=== PATIENT | male | born 1960 | race Caucasian/White ===

== ENCOUNTER 2020-07-24 14:17 | Outpatient (CLI) | payer OTHER, SELFPAY ==
--- NOTE | 2020-07-24 14:21 | ECHO_ITS ---
Patient Info Name: Tremayne Contreras Age: 60 years : 1960 Gender: Male Ht: 68 in Wt: 175 lbs BSA: 1.97 m2 HR: 88 bpm BP: 201 / 82 mmHg Heart Rhythm: Sinus Rhythm Technical Quality: Good Exam Date: 07/24/2020 3:11 PM Exam Location: [facility] Patient Status: Outpatient Admit Date: 07/24/2020 Staff Ordering Physician: Rito Jones PA-C Digital Content Coordinator: Donna Pressley RDCS Attending Provider: Rito Jones PA-C Referring Physician: Karen YAO; Exam Type: CA echo doppler color flow Study Info Indications - nonrheumatic aortic valve Complete two-dimensional, color flow and Doppler transthoracic echocardiogram is performed. Strain analysis performed. Summary 1. Complete two-dimensional, color flow and Doppler transthoracic echocardiogram is performed. 2. Left ventricular chamber dimension is mildly enlarged. 3. Left ventricular systolic function is normal, estimated at 60-65%. 4. There is mildly increased left ventricular wall thickness. 5. The left ventricular diastolic function is normal. 6. Global longitudinal strain is normal at -18 %. 7. Left atrial chamber dimension is mildly enlarged. 8. There is moderate to severe aortic valve regurgitation. 9. There is mild aortic valve sclerosis. 10. Possible bicuspid valve. 11. There is mild mitral valve regurgitation. 12. There is mild tricuspid valve regurgitation. 13. There is mild pulmonic regurgitation. 14. The aortic root size at the sinus of Valsalva is mildly dilated. 15. Would recommend close follow-up of her aortic valve and eventual THERON if one has not already been performed for anatomical evaluation. 16. Strain analysis performed. Left Ventricle Left ventricular chamber dimension is mildly enlarged. Left ventricular systolic function is normal, estimated at 60-65%. There is mildly increased left ventricular wall thickness. The left ventricular diastolic function is normal. Global longitudinal strain is normal at -18 %. Right Ventricle Right ventricular chamber dimension is normal. Right ventricular systolic function is normal. Left Atria Left atrial chamber dimension is mildly enlarged. Right Atria Right atrial chamber dimension is normal. Prominent eustachian valve-benign finding. Atrial Septum Intact interatrial septum visualized by color flow imaging. Aortic Valve There is mild aortic valve sclerosis. There is no aortic valve stenosis. There is moderate to severe aortic valve regurgitation. Possible bicuspid valve. Pulmonic Valve The pulmonic valve is normal. There is no pulmonic valve stenosis. There is mild pulmonic regurgitation. Mitral Valve The mitral valve has normal leaflets. There is no mitral valve stenosis. There is mild mitral valve regurgitation. Tricuspid Valve The tricuspid valve leaflets are normal. There is no significant tricuspid valve stenosis. There is mild tricuspid valve regurgitation. No pulmonary hypertension, estimated pulmonary arterial systolic pressure is 31 mmHg. Other Findings Would recommend close follow-up of her aortic valve and eventual THERON if one has not already been performed for anatomical evaluation. Pericardium/Pleural The pericardium appears normal. There is no pericardial effusion. Inferior Vena Cava Normal inferior vena cava with >50% collapse upon inspiration consistent with normal right atrial pressure, 10 mmHg. Aorta The aortic root size at the sinus of Valsalva is
== END 2020-07-24 14:18 | disposition home or self-care (01) ==
PROVIDERS: PCP Physician Assistant; Visit Provider Physician Assistant
DX: I35.0 Nonrheumatic aortic (valve) stenosis (principal); I34.0 Nonrheumatic mitral (valve) insufficiency; I07.1 Rheumatic tricuspid insufficiency; I37.1 Nonrheumatic pulmonary valve insufficiency
CPT/HCPCS: 93306

== ENCOUNTER 2020-07-31 12:06 | Outpatient (CLI) | payer OTHER, SELFPAY ==
[2020-07-31 12:42] LABS: Hematocrit 43.6 % (42.0-52.0); Hemoglobin 14.9 g/dL (14.0-18.0); Mean Corpuscular HGB Conc 34.2 g/dl (32-36); Mean Corpuscular Volume 93.6 fl (80-100); Mean Platelet Volume 8.6 fl (7.4-10.4); Platelet Count Result 232 k/mm3 (150-375); Red Blood Count 4.66 M/mm3 (4.6-6.20); Red Cell Distribution Width 12.5 % (11.5-14.5); White Blood Count 6.2 K/mm3 (4.5-10.0)
[2020-07-31 12:45] LABS: Add Urine Microscopic? NO; Appearance Urine Clear (Clear); Bilirubin Urine Negative (Negative); Blood Urine Negative (Negative); Color Urine Colorless (Yellow); Glucose Urine UA Negative (Negative); Ketones Urine Negative (Negative); Leukocyte Esterase Ur Negative LEU/UL (NEGATIVE); Nitrate Urine Negative (Negative); Protein Urine Negative (Negative); Specific Grav Ur 1.005 (1.001-1.035); Urobilinogen Urine Negative mg/dL (<2.0)
[2020-07-31 12:55] LABS: Alanine Aminotransferase 19 U/L (4-50); Albumin Level 4.1 g/dL (3.5-5.1); Alkaline Phosphatase 79 U/L (38-126); Anion Gap 4 mmol/L (8-16); Aspartate Amino Transferase 27 U/L (17-59); Bilirubin,Total 0.7 mg/dL (0.2-1.3); Blood Urea Nitrogen 17 mg/dL (9-20); Calcium 9.3 mg/dL (8.4-10.2); Carbon Dioxide 30 mmol/L (22-30); Chloride 102 mmol/L (98-107); Cholesterol 220 mg/dL (0-200); Estimated Glomerular Filt Rate > 60; Glucose 97 mg/dL (75-110); HDL Direct 52 mg/dL; Potassium 4.5 mmol/L (3.4-5.0); Sodium 136 mmol/L (137-145); Triglycerides 128 mg/dL (<150)
[2020-07-31 13:05] LABS: LDL Cholesterol Direct 146 mg/dL
[2020-07-31 13:25] LABS: Prostate Specific Antigen 1.6 ng/mL (< OR = 4.0)
== END 2020-07-31 12:07 | disposition home or self-care (01) ==
PROVIDERS: PCP Physician Assistant; Visit Provider Physician Assistant
DX: Z00.00 Encounter for general adult medical examination without abnormal findings (principal); R35.0 Frequency of micturition; Z12.5 Encounter for screening for malignant neoplasm of prostate
CPT/HCPCS: 36415; 80053; 80061; 81003; 84153; 84443; 85027; 87086; G0103

== ENCOUNTER 2020-08-07 12:42 | Outpatient (CLI) | payer OTHER, SELFPAY ==
--- NOTE | ~2020-08-07 | CT_ITS ---
EXAMINATION: CT chest w con DATE: 08/07/2020 13:06 INDICATION: Aortic valve insufficiency TECHNIQUE: Transaxial computed tomographic images of the chest were obtained after the administration of 75 cc of Omnipaque 350 intravenous contrast. The dose-length product (DLP) was 259.81 mGy-cm. Ite rative reconstruction was used. COMPARISON: 02/15/2011 FINDINGS: The lungs are free of acute opacities. There is no pleural effusion or pneumothorax. Calcif ied pulmonary nodules and calcified right hilar lymph nodes are consistent with old granulomatous dis ease. The ascending aorta measures 4.5 cm at the level of the sinuses of Valsalva. The heart size is normal. There are no pathologically enlarged thoracic lymph nodes. Punctate calcifications in an othe rwise normal spleen likely represent healed granulomatous disease. There is mild thoracic spondylosis . IMPRESSION: 1. Dilated aortic root measuring 4.5 cm at the level of the sinuses of Valsalva. Reviewed, dictated and finalized at location A. NING INSTRUCTOR IMPRESSION: 1. Dilated aortic root measuring 4.5 cm at the level of the sinuses of Valsalva .
== END 2020-08-07 12:43 | disposition home or self-care (01) ==
PROVIDERS: PCP Physician Assistant; Visit Provider Specialist
DX: I35.1 Nonrheumatic aortic (valve) insufficiency (principal); M47.814 Spondylosis without myelopathy or radiculopathy, thoracic region
CPT/HCPCS: 71260; Q9967

== ENCOUNTER 2020-08-12 01:28 | Outpatient (CLI) | payer OTHER, SELFPAY ==
[2020-08-12 20:15] LABS: SARS-CoV-2 RNA PCR Negative
== END 2020-08-12 01:29 | disposition home or self-care (01) ==
LOC: ANHCOVIDDT 01:28
PROVIDERS: PCP Physician Assistant; Visit Provider Specialist
DX: Z01.812 Encounter for preprocedural laboratory examination (principal); Z11.59 Encounter for screening for other viral diseases
CPT/HCPCS: 87635; C9803; U0003

== ENCOUNTER 2020-08-16 00:46 | Day surgery (SDC) | payer OTHER, SELFPAY ==
[2020-08-15 10:00] VITALS: BP 146/58; PULSE 62; RESP 16; TEMP 36.6; O2SAT 96
[2020-08-15 11:06] VITALS: BMI 26.6
[2020-08-16] VITALS (10 sets, daily range): BP systolic 146–187; BP diastolic 58–71; PULSE 60–70; RESP 16–20; TEMP 36.6–36.7; O2SAT 95–98
[2020-08-16 07:43] LABS: Hematocrit 45.5 % (42.0-52.0); Hemoglobin 15.7 g/dL (14.0-18.0); Mean Corpuscular HGB Conc 34.5 g/dl (32-36); Mean Corpuscular Hemoglobin 32.2 pg (26-34); Mean Corpuscular Volume 93.4 fl (80-100); Mean Platelet Volume 9.1 fl (7.4-10.4); Platelet Count Result 221 k/mm3 (150-375); Red Blood Count 4.87 M/mm3 (4.6-6.20); Red Cell Distribution Width 12.6 % (11.5-14.5); White Blood Count 5.2 K/mm3 (4.5-10.0)
[2020-08-16 07:54] LABS: Alanine Aminotransferase 22 U/L (4-50); Albumin Level 4.4 g/dL (3.5-5.1); Alkaline Phosphatase 90 U/L (38-126); Anion Gap 8 mmol/L (8-16); Aspartate Amino Transferase 27 U/L (17-59); Bilirubin,Total 0.7 mg/dL (0.2-1.3); Blood Urea Nitrogen 12 mg/dL (9-20); Calcium 9.4 mg/dL (8.4-10.2); Carbon Dioxide 27 mmol/L (22-30); Chloride 106 mmol/L (98-107); Estimated CRCL calculation 61 ml/min; Estimated Glomerular Filt Rate > 60; Glucose 119 mg/dL (75-110); Sodium 141 mmol/L (137-145)
--- NOTE | 2020-08-16 08:37 | WPDMODSED ---
Moderate Sedation Note-Pt Data Patient Data Diagnosis: chronic aortic valve regurgitation and aortic root enlargement Present Complaint: 60-year-old man reporting symptoms of mild DUONG. He is known to have chronic aortic valve regurgitation and now has evidence of modest and left ventricular enlargement and ascending aorta diameter of 4.5 cm Procedure to be performed/Plan: right and left heart catheterization Allergies Allergy/AdvReac Type Severity Reaction Status Date / Time No Known Allergies Allergy Unknown Verified 07/10/20 09:51 Home Medications Medication Instructions Recorded Confirmed Type lisinopril 20 mg tablet 20 mg PO DAILY #90 tablet 07/10/20 08/15/20 Rx tamsulosin 0.4 mg capsule 0.4 mg PO DAILY #90 cap 07/17/20 08/15/20 Rx Current Medications: Active Medications Sodium Chloride (Normal Saline Iv) 500 mls @ 100 mls/hr IV CONT .Q5H ANGE Sedation/Anesthesia: No previous sedation/anesthesia problems (including family history). [facility] Past Medical History Medical History (Updated 07/14/20 @ 11:49 by Rito Jones PA-C) Hypertension Family History Family History Father Heart disease Mother No problems noted. Social History Social History Smoking status: Never smoker Alcohol intake: current Substance use: never Mod Sed Physical Exam Physical Exam Pre Procedural Exam: Normal: Appearance, Neck, Throat, Airway, Lungs, Heart Size, Heart Rate, Heart Rhythm and Neuro Exam and Variation: Extremities ( Pistol shot pulses) Hours since solid foods: 12 Hours since liquid intake: 12 Internal Medicine - PN: Obj Da Vital Signs Vital Signs: Vital Signs - 24 hr 08/16/20 08:10 Temperature 36.7 C Pulse Rate 70 Respiratory Rate 16 Blood Pressure 187/71 H Pulse Oximetry 98 Intake/Output Intake/Output: Intake & Output 08/13/20 08/14/20 08/15/20 08/16/20 23:59 23:59 23:59 23:59 Output Total 0 Balance 0 Meds/Results Medications: Active Medications Generic Name Dose Route Start Last Admin Trade Name Freq PRN Reason Stop Dose Admin Sodium Chloride 500 mls @ 100 mls/hr 08/16/20 07:35 Normal Saline Iv IV CONT .Q5H ANGE Labs CBC & Chem 7: 08/16/20 07:37 08/16/20 07:37 Labs: Laboratory Results - last 24 hr 08/16/20 08/16/20 07:37 07:37 WBC 5.2 RBC 4.87 Hgb 15.7 Hct 45.5 MCV 93.4 MCH 32.2 MCHC 34.5 RDW 12.6 Plt Count 221 MPV 9.1 Sodium 141 Potassium 4.0 Chloride 106 Carbon Dioxide 27 Anion Gap 8 BUN 12 D Creatinine 1.10 Estim Creat Clear Calc 61 Estimated GFR > 60 Glucose 119 H Calcium 9.4 Total Bilirubin 0.7 AST 27 ALT 22 Alkaline Phosphatase 90 Total Protein 8.0 Albumin 4.4 ASA Classification/Sedation ASA Classification/Sedation ASA Class: III Emergent: No Risks: Risks, benefits and alternatives explained and patient/family accepted plan for sedation. Patient re-evaluated immediately prior to sedation.
--- NOTE | 2020-08-16 09:34 | WPDCARDPROC ---
Cardiac Cath Procedure Note Date of procedure:: 08/16/20 Performing physician:: Ubaldo Velázquez MD Indication:: aortic root enlargement and severe aortic regurgitation Brief clinical history:: this is a 60-year-old man referred because of symptoms of mild dyspnea he is been found to have chronic aortic valve regurgitation and has echocardiographic evidence of modest enlarging of the left ventricle and chest CT demonstrating ascending aorta diameter is 4.5 cm. Procedure Procedure performed:: Right and left heart catheterization Sedation/Medication given:: fentanyl 50 mg Versed 4 mg case start time 8:46 a.m. case end time 9:30 a.m. sedation provided by Heavenly Cramer RN, trained observer Access site:: right femoral artery, right femoral vein Estimated blood loss:: 10-15 cc Procedure note:: patient was brought to the cardiac catheterization lab where the right femoral triangle was prepared and draped in usual fashion. Anesthesia was provided with 1% lidocaine infiltrated locally. Using modified Seldinger technique a 5 Kazakh sheath was placed into the right femoral artery and a 7 Kazakh sheath into the femoral vein. I used a balloon tipped [place] catheter to measure right heart pressures. The right atrium and right ventricle were measured. I was unable to locate the catheter out into the pulmonary artery and withdrew the [place] catheter and replaced it with an S tip catheter. The S tipped catheter was able to successfully advance into the pulmonary artery in wedge position. Following that he cardiac outputs were calculated and av O2 difference was sample. The [place] catheter was then removed. I used a 5 Kazakh angled pigtail catheter to in advanced to the central aorta and left ventricle the left ventricular and aortic hemodynamics were documented and then an LV g was done in the 30 degree SHAW projection. An aortic root injection was done in the 45 degree HELEN projection. The pigtail catheter was then removed. I used a 5 Kazakh FL4 catheter to engage inject the left coronary artery in multiple projections. I used a 5 Kazakh JR4 catheter to engage inject the right coronary artery. Following this procedure was terminated. An angiogram was done of the femoral artery through the sheath after which a 6 Kazakh Angio-Seal device was deployed at the puncture site with a good hemostatic result. The venous sheath was removed with direct manual pressure in the clinical laboratory technician. Procedure was well tolerated and uncomplicated. He left the clinical laboratory technician with no evidence of a groin hematoma. Findings:: Hemodynamics: Right atrium 3 mmHg right ventricle 28 over 3 and diastolic 7 pulmonary artery pressure 23 over for pulmonary wedge pressure 6. Central aorta 170/58 left ventricle 170/0 end-diastolic 12 there is no significant gradient on pullback across the aortic valve. Pulse pressure as measured above is 112 mmHg. Thermodilution cardiac output is 6.43 liters/minute giving an index of 3.33 Josefina cardiac output is 6.83 liters/minute giving an index of 3.53. left ventricle: The LV is slightly enlarged there is good contractility in all segments the ejection fraction is 55-60% aortic root: Aortic root is moderately dilated there is 3 to 4+ aortic regurgitation by angiographic criteria. The left main coronary artery is short and nicely patent the LAD is a moderate caliber artery the proximal half of the LAD is ectatic lead dilated. There is minimal atherosclerotic plaquing in the segment but no functionally significant lesions. The circumflex is a medium caliber vessel giving rise to marginal branches the circumflex system is angiographically smooth and unremarkable in appearance the right coronary artery is dominant to the inferior wall it is also large and ectatic lead dilated with mild diffuse luminal irregularities but no flow-limiting lesions are identified. Conclusion:: 1. Right coronary dominant circulation with ectatic hardeep
== END 2020-08-16 13:15 | disposition home or self-care (01) ==
PROVIDERS: PCP Physician Assistant; Visit Provider Specialist
PROC: 4A023N8 Measurement of Cardiac Sampling and Pressure, Bilateral, Percutaneous Approach (ICD-10-PCS; CPT 93453; principal; 2020-08-16 08:30)
DX: I35.1 Nonrheumatic aortic (valve) insufficiency (principal); I77.810 Thoracic aortic ectasia; R06.00 Dyspnea, unspecified; R01.1 Cardiac murmur, unspecified; N40.0 Benign prostatic hyperplasia without lower urinary tract symptoms; I10 Essential (primary) hypertension
CPT/HCPCS: 36415; 80053; 85027; 93460; C1760; C1887; C1894; G0269; J1644; J2250; J3010; J7040

== ENCOUNTER 2021-01-30 08:46 | Outpatient (CLI) | payer OTHER, SELFPAY ==
--- NOTE | 2021-01-30 | EST_ITS ---
Patient Info Name: Tremayne Contreras Age: 61 years : 1960 Gender: Male Ht: 68 in Wt: 180 lbs BSA: 2.00 m2 HR: 67 bpm BP: 139 / 52 mmHg Heart Rhythm: Sinus Rhythm Exam Date: 01/30/2021 9:02 AM Exam Location: [facility] Patient Status: Outpatient Admit Date: 01/30/2021 Staff Ordering Physician: Ubaldo Velázquez MD Body Care Manager: Jacquelyn Ca RDCS Attending Provider: Ubaldo Velázquez MD Exercise Technologist: Masha Trujillo RDCS Exercise Physician: Carlos Eduardo Mcclellan MD Exam Type: CA stress echo Study Info Indications I35.1 - Nonrheumatic aortic (valve) insufficiency Treadmill exercise stress echocardiogram is performed. Summary 1. This study was performed in a patient with significant aortic regurgitation to check functional capacity and LV function with stress. Baseline EKG showed sinus rhythm, no significant ST-T abnormalities. Patient exercised on the treadmill using standard Kalin protocol for 9 minutes and 24 seconds achieving a cardiac workload of 10.9 Mets. Patient stopped exercise due to shortness of breath. No chest pain. Nondiagnostic ST changes were seen on the EKG which did not meet criteria for ischemia. Baseline echocardiogram showed moderate LV enlargement with preserved LV systolic function, EF 55-60%. Stress echocardiographic images showed hyperdynamic LV systolic function with augmentation of all visualized myocardial segments without segmental wall motion abnormality. CONCLUSIONS: 1. Stress EKG and stress echocardiogram negative for ischemia. 2. Good functional capacity. 3. Wide pulse pressure due to aortic regurgitation. 4. Clinical correlation is recommended. Stress Echo Findings Left Ventricle Hyperdynamic LV systolic function, with decrease in the LV cavity size, no segmental wall motion abnormality was seen. Left Ventricle Moderate LV enlargement, normal global LV systolic function, ejection fraction 55-60%. Right Ventricle Normal size and systolic function. Protocol: Kalin Stress ECG Details Stage: REST Duration (min): 1 min : 54 sec Speed (mph): 0.0 Grade (%): 0 HR (bpm): 66 SBP (mmHg): 139 DBP (mmHg): 52 METS: --- Stage: REST Duration (min): --- Speed (mph): 0.0 Grade (%): 0 HR (bpm): 73 SBP (mmHg): 139 DBP (mmHg): 52 METS: --- Stage: STAGE 1 Duration (min): 1 min : 0 sec Speed (mph): 1.7 Grade (%): 10 HR (bpm): 79 SBP (mmHg): 139 DBP (mmHg): 52 METS: --- Stage: STAGE 1 Duration (min): 2 min : 0 sec Speed (mph): 1.7 Grade (%): 10 HR (bpm): 80 SBP (mmHg): 139 DBP (mmHg): 52 METS: --- Stage: STAGE 1 Duration (min): 3 min : 0 sec Speed (mph): 1.7 Grade (%): 10 HR (bpm): 93 SBP (mmHg): 168 DBP (mmHg): 71 METS: --- Stage: STAGE 2 Duration (min): 1 min : 0 sec Speed (mph): 2.5 Grade (%): 12 HR (bpm): 96 SBP (mmHg): 168 DBP (mmHg): 71 METS: --- Stage: STAGE 2 Duration (min): 2 min : 0 sec Speed (mph): 2.5 Grade (%): 12 HR (bpm): 102 SBP (mmHg): 179 DBP (mmHg): 72 METS: --- Stage: STAGE 2 Duration (
== END 2021-01-30 08:47 | disposition home or self-care (01) ==
PROVIDERS: PCP Physician Assistant; Visit Provider Specialist
DX: I35.1 Nonrheumatic aortic (valve) insufficiency (principal)
CPT/HCPCS: 93351

== ENCOUNTER 2021-05-10 11:26 | Outpatient (CLI) | payer OTHER, SELFPAY ==
[2021-05-10 12:18] LABS: Add Urine Microscopic? YES; Appearance Urine Clear (Clear); Bilirubin Urine Negative (Negative); Blood Urine Negative (Negative); Color Urine Amber (Yellow); Glucose Urine UA Negative (Negative); Ketones Urine Negative (Negative); Leukocyte Esterase Ur Negative LEU/UL (NEGATIVE); Mucus Urine Moderate /lpf; Nitrate Urine Negative (Negative); Protein Urine 1+ mg/dL (Negative); Specific Grav Ur 1.024 (1.001-1.035)
== END 2021-05-10 11:27 | disposition home or self-care (01) ==
LOC: ANHLAB 11:27
PROVIDERS: PCP Physician Assistant; Visit Provider Physician Assistant
DX: R30.0 Dysuria (principal)
CPT/HCPCS: 81001; 87086

== ENCOUNTER 2022-02-13 15:02 | Outpatient (CLI) | payer OTHER, SELFPAY ==
[2022-02-13 15:41] LABS: Anion Gap 6 mmol/L (8-16); Blood Urea Nitrogen 18 mg/dL (9-20); Calcium 8.7 mg/dL (8.4-10.2); Carbon Dioxide 26 mmol/L (22-30); Chloride 106 mmol/L (98-107); Estimated Glomerular Filt Rate > 60; Glucose 96 mg/dL (65-110); Potassium 4.2 mmol/L (3.4-5.0); Sodium 138 mmol/L (137-145)
== END 2022-02-13 15:03 | disposition home or self-care (01) ==
LOC: ANHLAB 15:04
PROVIDERS: PCP Physician Assistant; Visit Provider Specialist
DX: I35.1 Nonrheumatic aortic (valve) insufficiency (principal)
CPT/HCPCS: 36415; 80048

== ENCOUNTER 2022-03-18 12:10 | Outpatient (CLI) | payer OTHER, SELFPAY ==
--- NOTE | 2022-03-18 | ECHO_ITS ---
Patient Info Name: Tremayne Contreras Age: 62 years : 1960 Gender: Male Ht: 68 in Wt: 175 lbs BSA: 1.97 m2 HR: 59 bpm BP: 167 / 74 mmHg Heart Rhythm: Sinus Rhythm Technical Quality: Good Exam Date: 03/18/2022 12:43 PM Exam Location: [facility] Patient Status: Outpatient Admit Date: 03/18/2022 Staff Ordering Physician: Ubaldo Velázquez MD Yard Associate: Jacquelyn Ca RDCS Attending Provider: Ubaldo Velázquez MD Referring Physician: Melania CROWLEY; Exam Type: CA echo doppler color flow Study Info Indications I35.1 - Nonrheumatic aortic (valve) insufficiency Complete two-dimensional, color flow and Doppler transthoracic echocardiogram is performed. Summary 1. Complete two-dimensional, color flow and Doppler transthoracic echocardiogram is performed. 2. Left ventricular chamber dimension is mildly enlarged. 3. Left ventricular systolic function is normal, estimated at 60-65%. 4. The left ventricular diastolic function is grade I diastolic dysfunction. 5. There is moderate aortic valve regurgitation. 6. Left ventricular end systolic dimension is normal. Left Ventricle Left ventricular chamber dimension is mildly enlarged. Left ventricular systolic function is normal, estimated at 60-65%. The left ventricular diastolic function is grade I diastolic dysfunction. Right Ventricle Right ventricular chamber dimension is normal. Left Atria Left atrial chamber dimension is normal. Right Atria Right atrial chamber dimension is normal. Aortic Valve The aortic valve is trileaflet. There is moderate aortic valve regurgitation. Pulmonic Valve The pulmonic valve is normal. Mitral Valve The mitral valve has normal leaflets. Tricuspid Valve The tricuspid valve leaflets are normal. Pericardium/Pleural The pericardium appears normal. Aorta The aortic root size at the sinus of Valsalva is normal. Left Ventricular Outflow Tract Name Value Normal LVOT 2D LVOT Diameter 2.5 cm LVOT Doppler LVOT Peak Gradient 4 mmHg LVOT Mean Gradient 2 mmHg LVOT VTI 26 cm LVOT VTI/AV VTI Ratio 0.6 LVOT Stroke Volume 122 ml LVOT CO 7.4 l/min LVOT CI 3.8 l/min/m2 Pulmonic Valve Name Value Normal RVOT Doppler RVOT Peak Gradient 2 mmHg PV Doppler PV Peak Gradient 3 mmHg Mitral Valve Name Value Normal MV Doppler
== END 2022-03-18 12:11 | disposition home or self-care (01) ==
PROVIDERS: PCP Physician Assistant; Visit Provider Specialist
DX: I35.1 Nonrheumatic aortic (valve) insufficiency (principal)
CPT/HCPCS: 93306

== ENCOUNTER 2022-05-23 09:52 | Observation (INO) | payer OTHER, SELFPAY ==
[2022-05-23] VITALS (32 sets, daily range): BP systolic 128–158; BP diastolic 57–89; PULSE 71–157; RESP 14–31; TEMP 36.4–37; O2SAT 95–99; BMI 25.2
--- NOTE | ~2022-05-23 | XR_ITS ---
EXAMINATION: XR chest 2V DATE: 05/23/2022 11:40 INDICATION: Weakness. TECHNIQUE: Frontal and lateral views of the chest were obtained. COMPARISON: Chest 2 views 04/13/2011, chest CT 08/07/2020 FINDINGS: The chest demonstrates clear lungs without pneumonia, pleural effusion, or pneumothorax. Th e heart size is normal. There is a prominent left paracardial fat pad. IMPRESSION: 1. No acute cardiopulmonary disease. Reviewed, dictated and finalized at location A.
--- NOTE | 2022-05-23 09:58 | ECG_ITS ---
Measurements Intervals [place] Rate: 148 P: MO: 0 QRS: -45 QRSD: 100 T: 99 QT: 286 QTc: 449 Interpretive Statements ATRIAL FIBRILLATION WITH RAPID VENTRICULAR RESPONSE INCOMPLETE RIGHT BUNDLE BRANCH BLOCK LEFT ANTERIOR FASCICULAR BLOCK LEFT VENTRICULAR HYPERTROPHY WITH ST-T CHANGE CANNOT RULE OUT SEPTAL INFARCT, AGE INDETERMINATE BORDERLINE ST ABNORMALITY- LATERAL LEADS BASELINE ARTIFACT- I, II, III, AVR ABNORMAL ECG NO PREVIOUS ECG AVAILABLE FOR COMPARISON Electronically Signed On 05-23-2022 10:24:27 CDT by Jasiel Hernández D.O.
[2022-05-23 10:22] LABS: Basophils Absolute Auto 0.1 K/mm3 (0.0-0.1); Basophils Percent Auto 0.6 % (0.2-1.2); Eosinophils Absolute Auto 0.1 K/mm3 (0-0.3); Eosinophils Percent Auto 0.9 % (0-4.4); Hematocrit 50.1 % (42.0-52.0); Hemoglobin 17.4 g/dL (14.0-18.0); Immature Granulocyte Absolute 0.03 K/mm3 (0.00-0.031); Immature Granulocyte Percent A 0.3 % (0-0.5); Lymphocytes Percent Auto 17.9 % (18.3-44.2); Mean Corpuscular HGB Conc 34.7 g/dl (32-36); Mean Corpuscular Volume 92.1 fl (80-100); Mean Platelet Volume 9.2 fl (7.4-10.4); Monocytes Absolute Auto 0.7 K/mm3 (0.1-0.6); Monocytes Percent Auto 7.9 % (2.6-8.5); Neutrophils Absolute Auto 6.5 K/mm3 (1.3-6.7); Neutrophils Percent Auto 72.4 % (45.5-73.1); Platelet Count Result 259 k/mm3 (150-375); Red Blood Count 5.44 M/mm3 (4.6-6.20); Red Cell Distribution Width 12.8 % (11.5-14.5); White Blood Count 8.9 K/mm3 (4.5-10.0)
--- NOTE | 2022-05-23 10:28 | ED.GENADULT ---
HPI - General Adult General Chief complaint: Weakness Stated complaint: nausea, vomiting, weakness Time Seen by Provider: 05/23/22 10:13 History of Present Illness HPI narrative: 62-year-old male with a history of hypertension presents to the emergency room for evaluation of not feeling well . Patient states since Friday he has been experiencing generalized weakness, sinus congestion, cough postnasal drip, diarrhea and nausea. Patient states he noticed that his heart was racing this morning and felt it was best to get evaluated. Denies a history of A. fib. States he sees Dr. Velázquez. Related Data Allergies Allergy/AdvReac Type Severity Reaction Status Date / Time No Known Allergies Allergy Unknown Verified 05/23/22 10:12 Review of Systems Review of Systems: CONSTITUTIONAL: Denies fever, chills, or sweats. EYES: Denies visual changes, redness, or discharge. ENT: Reports rhinorrhea, congestion, and sore throat CARDIOVASCULAR: Reports palpitations RESPIRATORY: Denies cough or dyspnea. GASTROINTESTINAL: Reports diarrhea. GENITOURINARY: Denies dysuria or hematuria. SKIN: Denies rash or itching. MUSCULOSKELETAL: Denies back pain, joint pain, or myalgia. NEUROLOGIC: Reports weakness. PSYCHIATRIC: Denies anxiety or depression. [facility] Past Medical History Medical History Hypertension Family History Family History Father Heart disease Mother No problems noted. Social History Social History Smoking status: Never smoker Alcohol intake: current Substance use: never Exam Narrative: GENERAL: Well-appearing, well-nourished, no physical limitations, and in no acute distress. HEAD: Normocephalic, atraumatic. EYES: Conjunctivae normal, PERRLA and EOMI. CHEST: Clear to auscultation. No respiratory distress. No wheezes rales or rhonchi. No tenderness. HEART: Tachycardia rate and regular rhythm. No murmur heard. Normal peripheral pulses. ABDOMEN: Soft, nontender, nondistended, normal active bowel sounds. EXTREMITIES: Normal range of motion. No edema. No clubbing or cyanosis SKIN: Warm, dry, no rash. No noted wounds NEURO: No focal deficits. Alert and oriented x3. MAEW. CN's II-XI intact bilaterally, normal gait PSYCH: Cooperative. Anxious. Course Course Emergency Course: 1115: Spoke to Dr. Bynum's nurse practitioner, Jes Joseph She is aware of patient's status. Vital Signs Vital signs: Vital Signs Temperature 36.4 C L 05/23/22 09:54 Pulse Rate 98 05/23/22 09:54 Respiratory Rate 18 05/23/22 09:54 Blood Pressure 136/88 05/23/22 09:54 Pulse Oximetry 98 05/23/22 09:54 Oxygen Delivery Room Air 05/23/22 09:54 Temperature 36.4 C L 05/23/22 09:54 Pulse Rate 157 H 05/23/22 10:15 Respiratory Rate 18 05/23/22 09:54 Blood Pressure 136/88 05/23/22 09:54 Pulse Oximetry 98 05/23/22 09:54 Oxygen Delivery Room Air 05/23/22 09:54 Medical Decision Making MDM Narrative Medical decision making narrative: 62-year-old male history of hypertension and aortic insufficiency who sees presented to the emergency room complaints of upper respiratory symptoms and palpitations. Patient was found to have a new onset A. fib with RVR. Cardizem bolus was given and the subsequent Cardizem drip was started. Patient's heart rate fell from 140s to 80s. Discussed case with Dr. Bynum's nurse practitioner and will admit patient to IMU. Vital Signs Vital Signs: Vital Signs Temperature 36.4 C L 05/23/22 09:54 Pulse Rate 98 05/23/22 09:54 Respiratory Rate 18 05/23/22 09:54 Blood Pressure 136/88 05/23/22 09:54 Pulse Oximetry 98 05/23/22 09:54 Oxygen Delivery Room Air 05/23/22 09:54 Temperature 36.4 C L 05/23/22 09:54 Pulse Rate 157 H 05/23/22 10:15 Respiratory Rate 18 09
[2022-05-23] MEDS: dilTIAZem HCl INJ 25 MG/5 ML VIAL 20 MG IV PUSH (10:30)
[2022-05-23] MEDS: dilTIAZem 100 MG/100 ML 100 MG/100 ML BAG IV CONT (10:31)
[2022-05-23 10:47] LABS: Partial Thromboplastin Time 25.7 SECONDS (22.3-36.8); Prothrombin Time 13.2 Seconds (11.1-14.7)
[2022-05-23 10:56] LABS: Alanine Aminotransferase 36 U/L (6-50); Albumin Level 5.1 g/dL (3.5-5.1); Alkaline Phosphatase 123 U/L (38-126); Anion Gap 15 mmol/L (8-16); Aspartate Amino Transferase 37 U/L (17-59); Blood Urea Nitrogen 20 mg/dL (9-20); Calcium 9.7 mg/dL (8.4-10.2); Carbon Dioxide 22 mmol/L (22-30); Chloride 102 mmol/L (98-107); Estimated CRCL calculation 35 ml/min; Estimated Glomerular Filt Rate 36; Glucose 156 mg/dL (65-110); Potassium 3.5 mmol/L (3.4-5.0); Sodium 139 mmol/L (137-145)
[2022-05-23 11:06] LABS: SARS-CoV-2 RNA PCR Negative
[2022-05-23 11:27] LABS: Appearance Urine Slightly Cloudy (Clear); Bilirubin Urine 2+ (Negative); Blood Urine Negative (Negative); Glucose Urine UA Negative (Negative); Ketones Urine Trace mg/dL (Negative); Leukocyte Esterase Ur Negative LEU/UL (Negative); Nitrate Urine Negative (Negative); Protein Urine 3+ mg/dL (Negative); Specific Grav Ur >= 1.030 (1.001-1.035); pH Urine 5.5 (5.0-9.0)
[2022-05-23 11:31] LABS: Bacteria Urine Trace /hpf; Granular Casts Urine 15-19 /lpf; Hyaline Casts Urine 15-19 /lpf; Mucus Urine Moderate /lpf; WBC Urine 16-20 /hpf
[2022-05-23 11:36] LABS: Add Urine Microscopic? YES; Color Urine Dark Yellow (Yellow)
--- NOTE | 2022-05-23 13:25 | PM.IMHP ---
H&P: HPI History of Present Illness Date/Time: 05/23/22 13:25 Chief Complaint: Weakness with nausea and vomiting. Narrative: This is a 62 year male patient with a history of hypertension. The patient stated that he has not been eating or drinking very well over the last couple days. The patient stated since Friday he has been experiencing generalized weakness, sinus congestion and a postnasal drip with cough. He also has diarrhea and nausea. 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 The patient has no prior history of atrial fibrillation. The patient stated that he does see Dr. Velázquez for regurgitation of one of his heart valves that is being monitor. The patient was found to be in acute renal failure with creatinine of 1.9. Glucose is 156 his GFR 36. Troponin was noted to be 0.152. Patient was found to be negative for COVID. Chest x-ray was read as no acute cardiopulmonary disease. Patient's EKG was read as atrial fibrillation with rapid ventricular response with heart rate of 148. The patient was given IV fluids and started on Cardizem drip after he was given 20 mg of IV push diltiazem. When I saw the patient in the emergency room he was talking in full sentences and was not having any complaints of chest pain. The patient's heart rate was in the lower 100s when I saw him. We reviewed labs and previous echo. Cardiology has been consulted and has made recommendations. Patient is being admitted to IMU. Initially was an inpatient changed to observation. On the date of service of 05/23/2022. Review of Systems Review of Systems: See HPi All systems reviewed & are unremarkable except as noted in HPI and below Constitutional: Constitutional: Reports as per HPI and Reports no additional constitutional complaints Eyes: Eyes: Reports as per HPI and Reports no additional eye complaints ENT: Reports system reviewed and no additional complaints, except as documented and Reports Normal hearing present Cardiovascular: Cardiovascular: Reports no additional cardiovascular complaints Respiratory: Respiratory: Reports no additional respiratory complaints and Reports no additional respiratory complaints Gastrointestinal: Gastrointestinal: Reports as per HPI and Reports no additional gastrointestinal complaints Musculoskeletal: Musculoskeletal: Reports no additional musculoskeletal complaints Integumentary/Breasts: Skin/Breast: Reports system reviewed and no additional complaints, except as docu and Reports as per HPI Neurologic: Reports system reviewed and no additional complaints, except as documented, Reports as per HPI and Reports Normal hearing present Psychiatric: Psychiatric: Reports no additional psychiatric complaints and Reports as per HPI Endocrine: Endocrine: Reports no additional endocrine complaints Hematologic/Lymphatic: Hematologic/Lymphatic: Reports no additional hematologic/lymphatic complaints Allergic/Immunologic: Allergic/Immunologic: Reports no additional allergic/immunologic complaints [facility] Past Medical History Medical History Aortic insufficiency Atrial fibrillation Atrial fibrillation with RVR Hypertension Surgical History Surgical History No history of previous surgery Family History Family History Father Heart disease History of rheumatic fever and rheumatic valve disease, declined surgery and of valvular heart disease age 56 Mother No problems noted. 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 He has 1 daughter who is the durable power prosecuting attorney he occasionally drinks alcohol.
--- NOTE | 2022-05-23 14:59 | PM.CNCAR ---
Assessment and Plan Assessment and plan (1) Atrial fibrillation with RVR: Code(s): I48.91 - Unspecified atrial fibrillation Status: Acute Assessment and Plan: Mr. Conrteras presents with new onset of atrial fibrillation rapid ventricular response. Occurred either today or in the last few days. Heart rate is now controlled with IV Cardizem. Already takes metoprolol succinate 50 mg daily at home Likely caused by acute viral illness and dehydration superimposed on chronic hypertension Reviewed extensively with the patient. Discussed etiology, risk factors, evaluation, management etc. The atrial fibrillation may resolve during this admission with time + Cardizem + hydration, but he may have persistent atrial fibrillation and I recommended cardioversion either while here, or Pt prefers not to, we can discharge on rate control and anticoagulation and schedule cardioversion in a couple of weeks if he does not convert on his own. Will leave NPO for possible cardioversion tomorrow Check TSH No need for Echo since one was done in March Start Eliquis 5 mg b.i.d.. Continue IV Cardizem overnight (2) Acute dehydration: Code(s): E86.0 - Dehydration Status: Acute Assessment and Plan: Acute dehydration due to recent viral illness. Normal saline 125 cc/hour (3) Acute kidney injury: Code(s): N17.9 - Acute kidney failure, unspecified Status: Acute Assessment and Plan: Acute kidney injury likely due to dehydration Receiving IV fluids Daily BMP (4) Viral illness: Code(s): B34.9 - Viral infection, unspecified Status: Acute Assessment and Plan: Recent viral illness with diarrhea, resolving. COVID testing negative (5) Elevated troponin: Code(s): R77.8 - Other specified abnormalities of plasma proteins Status: Acute Assessment and Plan: Elevated troponin noted on admission. No chest pain or ischemic EKG changes No obstructive coronary disease by catheterization in 2019 Likely non ischemic cardiac injury due to AFib RVR (6) Aortic insufficiency: Code(s): I35.1 - Nonrheumatic aortic (valve) insufficiency Status: Acute Assessment and Plan: History of moderate aortic insufficiency followed by Dr. Velázquez. Asymptomatic and not at the stage where valve replacement would be recommended (7) Hypertension: Code(s): I10 - Essential (primary) hypertension Status: Acute Assessment and Plan: History of hypertension History of Present Illness History of Present Illness Consult date/time: 05/23/22 14:59 Reason For Visit: new onset a-fib Narrative: Tremayne Contreras is a 62 y.o. male whom I was asked to see at the request of Jez Barton APRN for my advise and opinion regarding his new onset atrial fibrillation, in consultation. The Patient is followed by Dr. Velázquez for his moderate aortic insufficiency. He also has a moderately dilated aortic root. His cardiac catheterization in August 2020 showed ectatic lead dilated proximal Left anterior descending and RCA arteries but no significant stenosis. His echo in March 2022 showed mildly dilated left ventricle, EF 60-65%, diastolic dysfunction, moderate AI, and his aortic root was mildly enlarged at 4.4 cm. he also has a history of hypertension. Mr. Contreras went to the baseball game on Friday, and enjoyed watching the cardinals beat the Reds in the very hot sun. The following day he woke up feeling sick, with congestion, achiness, a sore throat, diarrhea, anorexia, and vomited once. No fevers or GI bleeding. He took off work the next few days and had very little p.o. intake since he felt so bad. 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 He felt sweaty and weak and was described as looking corona. No chest pain or shortness of breath. In the emergency room he is found to have
[2022-05-23 15:04] LABS: Troponin I 0.152 ng/mL (0.000-0.034)
--- NOTE | 2022-05-23 15:45 | ADMGEN ---
This patient, Tremayne Contreras, was admitted to IMU Room 212-01. Patient/family oriented to hospital policies and general routines including ID bracelet, bed and alarms, visiting hours, pain management, procedures, bathroom and other care routines, personal items, smoking policy, room service/diet, and visiting hours. Information on how to activate the Rapid Response Team has been discussed. Patient/Family are encouraged to report perceived risks to care and to ask questions if they do not understand what they are told or what they should do.
[2022-05-23] MEDS: SODIUM CHLORIDE 0.9% IV 1,000 ML 125 ML IV CONT (17:11)
[2022-05-23 18:22] LABS: Troponin I 0.153 ng/mL (0.000-0.034)
[2022-05-23] MEDS: APIXABAN 5 MG TABLET PO (20:35)
[2022-05-23 21:43] LABS: Troponin I 0.135 ng/mL (0.000-0.034)
[2022-05-24] VITALS (10 sets, daily range): BP systolic 137–187; BP diastolic 49–60; PULSE 55–102; RESP 18–20; TEMP 36.7–37; O2SAT 96–97
[2022-05-24] MEDS: SODIUM CHLORIDE 0.9% IV 1,000 ML 125 ML IV CONT (00:15)
[2022-05-24] MEDS: dilTIAZem 100 MG/100 ML 100 MG/100 ML BAG IV CONT (00:25)
--- NOTE | 2022-05-24 03:27 | ECG_ITS ---
Measurements Intervals [place] Rate: 55 P: 14 IN: 188 QRS: -44 QRSD: 108 T: 26 QT: 454 QTc: 437 Interpretive Statements SINUS BRADYCARDIA LEFT AXIS DEVIATION INCOMPLETE RIGHT BUNDLE BRANCH BLOCK DELAYED PRECORDIAL R/S TRANSITION LEFT VENTRICULAR HYPERTROPHY AND ST-T CHANGE MINIMAL Q WAVES- HIGH HIGH LATERAL LEADS BORDERLINE ECG COMPARED TO ECG 05/23/2022 10:02:31 SINUS BRADYCARDIA NOW PRESENT Electronically Signed On 05-24-2022 6:35:21 CDT by Jasiel Hernández D.O.
--- NOTE | 2022-05-24 04:00 | PC.NURSE ---
Patient converted to sinus rhythm in the 60's at 0340. Patient's heart rate continued to drop into the 40's. Patient remained asymptomatic, alert and oriented. EKG obtained and Dr. Henning notified of rhythm changes. Received orders to pause Cardizem drip. Will continue to monitor.
[2022-05-24 05:35] LABS: Lactic Acid Reflex 0.5 mmol/L (0.7-2.0)
[2022-05-24 05:39] LABS: Anion Gap 7 mmol/L (8-16); Blood Urea Nitrogen 16 mg/dL (9-20); CRP 0.7 mg/dL (<1.0); Calcium 8.4 mg/dL (8.4-10.2); Carbon Dioxide 23 mmol/L (22-30); Chloride 108 mmol/L (98-107); Estimated CRCL calculation 60 ml/min; Estimated Glomerular Filt Rate > 60; Glucose 104 mg/dL (65-110); Potassium 3.6 mmol/L (3.4-5.0); Sodium 138 mmol/L (137-145)
[2022-05-24] MEDS: APIXABAN 5 MG TABLET PO (09:16)
[2022-05-24] MEDS: lisinopriL 20 MG TABLET 40 MG PO (09:16)
[2022-05-24] MEDS: NIFEdipine 30 MG TAB.ER.24 60 MG PO (09:16)
[2022-05-24] MEDS: METOPROLOL SUCCINATE EXT REL 50 MG TABCR PO (09:16)
--- NOTE | 2022-05-24 09:48 | PM.PNCARD ---
Progress Note: A&P Assessment and Plan (1) Atrial fibrillation with RVR: Code(s): I48.91 - Unspecified atrial fibrillation Status: Acute Assessment and Plan: Mr. Contreras presents with new onset of atrial fibrillation rapid ventricular response. Occurred either today or in the last few days. Converted to sinus rhythm overnight. Diltiazem drip discontinued. Continue home metoprolol succinate 50mg daily. Likely caused by acute viral illness and dehydration superimposed on chronic hypertension Continue systemic a/c with apixaban TSH WNL No need for Echo since one was done in March OK for discharge home today from a cardiac perspective. Will arrange follow up in our office. (2) Acute dehydration: Code(s): E86.0 - Dehydration Status: Acute Assessment and Plan: Acute dehydration due to recent viral illness. Normal saline 125 cc/hour (3) Acute kidney injury: Code(s): N17.9 - Acute kidney failure, unspecified Status: Acute Assessment and Plan: Acute kidney injury likely due to dehydration. Improved with IV fluids. Creatinine 1.1 today. (4) Viral illness: Code(s): B34.9 - Viral infection, unspecified Status: Acute Assessment and Plan: Recent viral illness with diarrhea, resolving. COVID testing negative (5) Elevated troponin: Code(s): R77.8 - Other specified abnormalities of plasma proteins Status: Acute Assessment and Plan: Elevated troponin noted on admission. No chest pain or ischemic EKG changes No obstructive coronary disease by catheterization in 2019 Likely non ischemic cardiac injury due to AFib RVR (6) Aortic insufficiency: Code(s): I35.1 - Nonrheumatic aortic (valve) insufficiency Status: Acute Assessment and Plan: History of moderate aortic insufficiency followed by Dr. Velázquez. Asymptomatic and not at the stage where valve replacement would be recommended (7) Hypertension: Code(s): I10 - Essential (primary) hypertension Status: Acute Assessment and Plan: History of hypertension Subjective Date/time seen: 05/24/22 09:48 Cardiology follow up for atrial fibrillation, aortic insufficiency Feeling much better today. He converted to sinus rhythm overnight. Creatinine has normalized today. Denies any chest pain or palpitations. He does complain of chest congestion and occasional cough. Review of Systems Constitutional: Constitutional: Reports body ache(s), Reports fatigue, Denies fever(s), Reports lethargy and Reports weakness Cardiovascular: Cardiovascular: Denies chest pain, Reports pedal edema, Denies lightheadedness, Reports palpitations and Denies dyspnea Respiratory: Respiratory: Denies chest congestion and Denies dyspnea Gastrointestinal: Gastrointestinal: Denies abdominal pain and Denies hematochezia Genitourinary: Genitourinary: Denies hematuria and Denies dysuria Musculoskeletal: Musculoskeletal: Reports no additional musculoskeletal complaints Integumentary/Breasts: Skin/Breast: Reports system reviewed and no additional complaints, except as docu Neurologic: Reports system reviewed and no additional complaints, except as documented, Denies behavioral changes, Denies confusion and Reports weakness Psychiatric: Psychiatric: Denies behavioral changes and Denies confusion Endocrine: Endocrine: Reports fatigue and Reports palpitations Exam Const: General: cooperative, healthy appearing and comfortable; No confusion Orientation/consciousness: oriented to person, patient oriented x3 and No confusion Eyes: EOM: EOMs intact bilaterally Neck: Neck: supple and no JVD Thyroid: thyroid normal Carotids: no bruits Resp: Effort & Inspection: normal respiratory effort Auscultation: clear to auscultation bilaterally Cardio: Rate: regular rate Rhythm: regular rhythm Heart sounds: Murmur heart sound present (1/6 systolic murmur, 2/6 diasto
[2022-05-24] MEDS: hydrALAZINE HCL 20 MG/ML VIAL 10 MG IV PUSH (11:05)
--- NOTE | 2022-05-24 11:45 | PM.DS ---
DS: Admitting Diagnosis Discharge Date 05/24/22 1145 Admitting Diagnosis Afib RVR DS: Discharge Diagnosis Discharge Diagnosis (1) Atrial fibrillation with RVR: Code(s): I48.91 - Unspecified atrial fibrillation Status: Acute Assessment and Plan: -cardiology has seen the patient and made recommendations. -better control of heart rate with IV Cardizem. -the patient takes metoprolol at home -patient will be made NPO for possible cardioversion tomorrow. -Eliquis will be started at 5 mg b.i.d.. -continue with IV Cardizem overnight. -the patient's Arnold Vasc score is 1 for his hypertension. (2) Acute kidney injury: Code(s): N17.9 - Acute kidney failure, unspecified Status: Acute Assessment and Plan: -patient appears to be dehydrated. -hold lisinopril for tonight. -continue to hydrate the patient. (3) Viral illness: Code(s): B34.9 - Viral infection, unspecified Status: Acute Assessment and Plan: -continue to hydrate. -the patient is COVID negative. (4) Aortic insufficiency: Code(s): I35.1 - Nonrheumatic aortic (valve) insufficiency Status: Acute Assessment and Plan: -last echo 03/18/2022 ?1. Complete two-dimensional, color flow and Doppler transthoracic echocardiogram is performed. ? 2. Left ventricular chamber dimension is mildly enlarged. ? 3. Left ventricular systolic function is normal, estimated at 60-65%. ? 4. The left ventricular diastolic function is grade I diastolic dysfunction. ? 5. There is moderate aortic valve regurgitation. ? 6. Left ventricular end systolic dimension is normal. He sees Dr. Velázquez for this. (5) Elevated troponin: Code(s): R77.8 - Other specified abnormalities of plasma proteins Status: Acute Assessment and Plan: -could be related to his AFib RVR. -continue to trend. (6) Hypertension: Code(s): I10 - Essential (primary) hypertension Status: Acute Assessment and Plan: -holding lisinopril for now. (7) BPH (benign prostatic hyperplasia): Code(s): N40.0 - Benign prostatic hyperplasia without lower urinary tract symptoms Status: Acute Assessment and Plan: -no complaints of any difficulties at this time. (8) Anxiety: Code(s): F41.9 - Anxiety disorder, unspecified Status: Acute Assessment and Plan: -the patient is not on any medication for this. Plan Abnormal urine urine culture has been obtained. DS: Summary Hospital Course Hospital Course: Patient is 62-year-old male with a past medical history of hypertension who presented to the emergency room for palpitations and tachycardia. Upon arrival patient was noted to be in AFib RVR. Troponins were on trend and got as high as 0.152. Cardiology was consulted patient was started on Cardizem drip. Patient eventually converted on his own after hydration. Patient went to the [employer] game and had a lot of fun and stopped eating and drinking due to upper respiratory illness congestion and cough. Since madelaine illness the patient had a lack of appetite along with not staying hydrated. Chest x-ray was performed and showed no acute cardiopulmonary disease. EKG was read is atrial fibrillation with RVR and a heart rate of 148. Since patient has converted patient has been restarted on his home medications and will follow up with Cardiology at the appointment that has been scheduled for him. Blood pressure is noted to be a little bit on the higher side. It appears that this is his baseline. He has been started on Eliquis since he did go into a. fib. He is ready to go home and is feeling better. He will need to monitor his blood pressure, and report to his primary for further instructions. He is stable for discharge at this time. Patient was re-evaluated many times throughout the day for blood pressure monitoring. Medications adjusted instructed patient to monitor blood pressure and report findings to ca
[2022-05-24] MEDS: LORATADINE/PSEUDOEPHEDRINE (*CRX) 10/240 MG TABLET ER 24 HR 1 TAB PO (13:06)
[2022-05-24] MEDS: NIFEdipine 30 MG TAB.ER.24 PO (14:48)
== END 2022-05-24 17:21 | disposition home or self-care (01) ==
LOC: ANHED 11:20 → ANHIMU 14:56
PROVIDERS: Emergency Medicine; Internal Medicine Cardiovascular Disease; Nurse Practitioner; Admitting Provider Internal Medicine; Emergency Provider Nurse Practitioner Family; PCP Physician Assistant; Visit Provider Nurse Practitioner
DX: I48.91 Unspecified atrial fibrillation (principal); N17.9 Acute kidney failure, unspecified; E86.0 Dehydration; B34.9 Viral infection, unspecified; Z20.822 Contact with and (suspected) exposure to COVID-19; I35.1 Nonrheumatic aortic (valve) insufficiency; R77.8 Other specified abnormalities of plasma proteins; I10 Essential (primary) hypertension; N40.0 Benign prostatic hyperplasia without lower urinary tract symptoms; F41.9 Anxiety disorder, unspecified; R00.1 Bradycardia, unspecified; I45.10 Unspecified right bundle-branch block; I77.810 Thoracic aortic ectasia; I51.89 Other ill-defined heart diseases; Z79.899 Other long term (current) drug therapy; Z82.49 Family history of ischemic heart disease and other diseases of the circulatory system
CPT/HCPCS: 36415; 71046; 80048; 80053; 81001; 83605; 83735; 84443; 84484; 85025; 85610; 85730; 86140; 87086; 93005; 96365; 96366; 96375; 99285; A9270; C9803; G0378; J0360; J7030; U0003; U0005

== ENCOUNTER 2022-10-11 05:38 | Emergency (ER) | payer OTHER, SELFPAY ==
[2022-10-11] VITALS (36 sets, daily range): BP systolic 112–159; BP diastolic 62–79; PULSE 72–138; RESP 11–28; TEMP 37; O2SAT 94–100
--- NOTE | ~2022-10-11 | XR_ITS ---
Portable chest x-ray Comparison: 05/23/2022 Clinical History: Atrial fibrillation Findings: Lungs are clear, without focal consolidation or pleural effusion. Cardiomediastinal silho uette is stable. Bones and soft tissues are unremarkable. Impression: Clear lungs. Reviewed, dictated and finalized at [facility]. 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
--- NOTE | 2022-10-11 06:01 | ECG_ITS ---
Measurements Intervals [place] Rate: 129 P: AL: 0 QRS: -45 QRSD: 101 T: 107 QT: 295 QTc: 433 Interpretive Statements ATRIAL FIBRILLATION WITH RAPID VENTRICULAR RESPONSE LEFT ANTERIOR FASCICULAR BLOCK [QRS AXIS <= -45, QR IN I, RS IN II] MODERATE VOLTAGE CRITERIA FOR LVH, CONSIDER NORMAL VARIANT [MEETS CRITERIA IN ONE OF: R(aVL), S(V1), R(V5), R(V5/V6)+S(V1)] ST DEVIATION AND MODERATE T-WAVE ABNORMALITY, CONSIDER LATERAL ISCHEMIA [-0.1+ mV T WAVE IN I/aVL/V5/V6] COMPARED TO ECG 05/24/2022 03:36:38 ATRIAL FIBRILLATION REPLACES SINUS RHYTHM Electronically Signed On 10-11-2022 13:10:43 HEALTHCARE MARKETER by Ubaldo Velázquez M.D.
--- NOTE | 2022-10-11 06:04 | ED.ARRPALP ---
HPI - Arrhythmia/Palpitations General Chief Complaint: Arrhythmia/Palpitations Stated Complaint: palpations Time Seen by Provider: 10/11/22 05:49 History of Present Illness HPI narrative: This is a 62-year-old male with past history of A-fib not currently on Eliquis or beta-adrianna, who presents to the emergency department complaining of palpitations beginning this evening. Patient states over the past several days he has had urinary frequency without dysuria. Last night, he took a single dose of 0.4 mg tamsulosin. Early this morning he noted palpitations but denies chest pain or shortness of breath. He denies nausea, vomiting or other illness. Related Data Home Medications Medication Instructions Recorded Confirmed lisinopril 40 mg tablet 40 mg PO DAILY 05/23/22 05/23/22 metoprolol succinate 50 mg 50 mg PO DAILY 05/23/22 05/23/22 tablet,extended release 24 hr Allergies Allergy/AdvReac Type Severity Reaction Status Date / Time No Known Allergies Allergy Unknown Verified 05/23/22 10:12 Review of Systems Review of Systems: CONSTITUTIONAL: Denies fever, chills, or sweats. ENT: Denies rhinorrhea, congestion, sore throat, or otalgia. CARDIOVASCULAR: Palpitations denies chest pain, or edema. RESPIRATORY: Denies cough or dyspnea. GASTROINTESTINAL: Denies abdominal pain, nausea, vomiting, or diarrhea. GENITOURINARY: Increased urinary frequency denies dysuria or hematuria. SKIN: Denies rash or itching. MUSCULOSKELETAL: Denies back pain, joint pain, or myalgia. NEUROLOGIC: Denies headache, numbness, dizziness, or weakness. PSYCHIATRIC: Denies anxiety or depression. FOR[facility]LY [facility], [facility] Past Medical History Medical History Aortic insufficiency Atrial fibrillation Atrial fibrillation with RVR Hypertension Surgical History Surgical History No history of previous surgery Family History Family History Father Heart disease History of rheumatic fever and rheumatic valve disease, declined surgery and of valvular heart disease age 56 Mother No problems noted. 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 He has 1 daughter who is the durable power research attorney he occasionally drinks alcohol. He does have significant other. The patient is a lifelong nonsmoker. He does not use any marijuana or are any other illegal substances. Code status full code Smoking status: Never smoker Alcohol intake: never Substance use: never Spiritual care concerns: No Exam Narrative: GENERAL: Well-appearing, well-nourished, and in no acute distress. HEAD: Normocephalic, atraumatic. EYES: PERRLA and EOMI. ENT: Nares clear, no rhinorrhea or epistaxis. Mucous membranes tacky. Oropharynx without tonsillar hypertrophy exudate or other lesions. CHEST: Clear to auscultation. No respiratory distress. No wheezes rales or rhonchi HEART: Irregularly irregular. No murmur heard. Normal peripheral pulses. ABDOMEN: Soft, nontender, nondistended, normal active bowel sounds. EXTREMITIES: Normal range of motion. No edema. SKIN: Warm, dry, no rash. NEURO: No focal deficits. Alert and oriented x3. PSYCH: Normal mood and affect. Course Course Emergency Course: 07:05 - EKG demonstrated A-fib with RVR. Heart rate improved to the mid 80s?90s with IV metoprolol and oral metoprolol. Patient is unremarkable. Troponin negative. Chest x-ray on my evaluation unremarkable. Patient signed out to oncoming ED physician,Dr. Dalton pending UA. I anticipate the patient may be discharged with oral beta-blockers and cardiology follow-up. Vital Signs Vital signs: Vital Signs Temperature 37.0 C 10/11/22 05:43 Pulse Rate 138 H 10/11/22 05:43 Res
[2022-10-11] MEDS: METOPROLOL TARTRATE INJ 5 MG/5 ML VIAL IV PUSH (06:13)
[2022-10-11] MEDS: SODIUM CHLORIDE 0.9% IV 1,000 ML 999 ML IV CONT (06:14)
[2022-10-11 06:15] LABS: Basophils Percent Auto 0.7 % (0.2-1.2); Eosinophils Absolute Auto 0.1 K/mm3 (0-0.3); Eosinophils Percent Auto 2.5 % (0-4.4); Hematocrit 42.3 % (42.0-52.0); Hemoglobin 14.6 g/dL (14.0-18.0); Immature Granulocyte Absolute 0.02 K/mm3 (0.00-0.031); Immature Granulocyte Percent A 0.4 % (0-0.5); Lymphocytes Absolute Auto 1.39 K/mm3 (0.9-3.2); Lymphocytes Percent Auto 24.6 % (18.3-44.2); Mean Corpuscular HGB Conc 34.5 g/dl (32-36); Mean Corpuscular Hemoglobin 31.9 pg (26-34); Mean Corpuscular Volume 92.6 fl (80-100); Mean Platelet Volume 8.7 fl (7.4-10.4); Monocytes Absolute Auto 0.3 K/mm3 (0.1-0.6); Neutrophils Absolute Auto 3.8 K/mm3 (1.3-6.7); Neutrophils Percent Auto 66.8 % (45.5-73.1); Platelet Count Result 249 k/mm3 (150-375); Red Blood Count 4.57 M/mm3 (4.6-6.20); Red Cell Distribution Width 12.5 % (11.5-14.5); White Blood Count 5.7 K/mm3 (4.5-10.0)
[2022-10-11 06:28] LABS: Alanine Aminotransferase 34 U/L (6-50); Albumin Level 4.7 g/dL (3.5-5.1); Alkaline Phosphatase 102 U/L (38-126); Anion Gap 9 mmol/L (8-16); Aspartate Amino Transferase 36 U/L (17-59); Bilirubin,Total 0.6 mg/dL (0.2-1.3); Blood Urea Nitrogen 20 mg/dL (9-20); Calcium 9.1 mg/dL (8.4-10.2); Carbon Dioxide 23 mmol/L (22-30); Chloride 102 mmol/L (98-107); Estimated CRCL calculation 60 ml/min; Estimated Glomerular Filt Rate > 60; Glucose 156 mg/dL (65-110); Magnesium 2.1 mg/dL (1.6-2.3); Potassium 3.7 mmol/L (3.4-5.0); Sodium 134 mmol/L (137-145)
[2022-10-11] MEDS: METOPROLOL TARTRATE 25 MG TABLET PO (06:38)
[2022-10-11 06:39] LABS: Troponin I < 0.012 ng/mL (0.000-0.034)
[2022-10-11 07:59] LABS: Appearance Urine Clear (Clear); Bilirubin Urine Negative (Negative); Blood Urine Negative (Negative); Color Urine Light Yellow (Yellow); Glucose Urine UA Negative (Negative); Ketones Urine Negative (Negative); Leukocyte Esterase Ur Negative LEU/UL (Negative); Nitrate Urine Negative (Negative); Protein Urine Negative (Negative); Urobilinogen Urine 0.2 mg/dL (<2.0)
[2022-10-11 08:41] LABS: Add Urine Microscopic? NO
--- NOTE | 2022-10-11 11:07 | ECG_ITS ---
Measurements Intervals [place] Rate: 89 P: [place]: 0 QRS: -41 QRSD: 102 T: 74 QT: 338 QTc: 412 Interpretive Statements ATRIAL FIBRILLATION LEFT AXIS DEVIATION [QRS AXIS < -30] MODERATE VOLTAGE CRITERIA FOR LVH, CONSIDER NORMAL VARIANT [MEETS CRITERIA IN ONE OF: R(aVL), S(V1), R(V5), R(V5/V6)+S(V1)] NONSPECIFIC T-WAVE ABNORMALITY COMPARED TO ECG 10/11/2022 06:06:53 VENTRICULAR RESPONSE TO AFIB IS SLOWER Electronically Signed On 10-11-2022 13:15:14 [employer] WORKER by Ubaldo Velázquez M.D.
== END 2022-10-11 11:58 | disposition home or self-care (01) ==
PROVIDERS: Preventive Medicine Aerospace Medicine; Emergency Provider Emergency Medicine; PCP Physician Assistant
DX: I48.91 Unspecified atrial fibrillation (principal); R35.0 Frequency of micturition; I35.1 Nonrheumatic aortic (valve) insufficiency; I10 Essential (primary) hypertension; T44.7X6A Underdosing of beta-adrenoreceptor antagonists, initial encounter; T45.516A Underdosing of anticoagulants, initial encounter; I44.4 Left anterior fascicular block; R94.31 Abnormal electrocardiogram [ECG] [EKG]
CPT/HCPCS: 36415; 71045; 80053; 81003; 83735; 84484; 85025; 93005; 96361; 96374; 99284; A9270; J7030

== ENCOUNTER 2023-03-21 05:35 | Emergency (ER) | payer OTHER, SELFPAY ==
--- NOTE | ~2023-03-21 | XR_ITS ---
Portable chest x-ray Comparison: 10/11/2022 Clinical History: Chest pain Findings: Lungs are clear, without focal consolidation or pleural effusion. Cardiomediastinal silho uette is stable. Bones and soft tissues are unremarkable. Impression: Clear lungs. Reviewed, dictated and finalized at location . Impression: Clear lungs.
--- NOTE | 2023-03-21 05:43 | ECG_ITS ---
Measurements Intervals [place] Rate: 127 P: AR: 0 QRS: -47 QRSD: 102 T: 89 QT: 280 QTc: 408 Interpretive Statements ATRIAL FIBRILLATION WITH RAPID VENTRICULAR RESPONSE INCOMPLETE RIGHT BUNDLE BRANCH BLOCK LEFT ANTERIOR FASCICULAR BLOCK LEFT VENTRICULAR HYPERTROPHY WITH ST-T CHANGE ABNORMAL ECG COMPARED TO ECG 10/11/2022 11:16:01 HEART RATE HAS INCREASED LEFT ANTERIOR FASCICULAR BLOCK NOW PRESENT Electronically Signed On 03-21-2023 11:03:00 CDT by Jasiel Hernández D.O.
[2023-03-21 07:45] VITALS: BP 131/56; PULSE 63; RESP 16; O2SAT 96
[2023-03-21 07:46] VITALS: PULSE 70
[2023-03-21 08:10] VITALS: BP 118/57; PULSE 74; RESP 22; O2SAT 98
[2023-03-21] MEDS: SODIUM CHLORIDE 0.9% IV 1,000 ML 999 ML IV CONT (08:28)
[2023-03-21 08:30] VITALS: BP 110/61; PULSE 87; RESP 20; O2SAT 97
[2023-03-21 08:31] LABS: Alanine Aminotransferase 25 U/L (6-50); Albumin Level 5.2 g/dL (3.5-5.1); Alkaline Phosphatase 116 U/L (38-126); Anion Gap 17 mmol/L (8-16); Aspartate Amino Transferase 32 U/L (17-59); Bilirubin,Total 0.6 mg/dL (0.2-1.3); Blood Urea Nitrogen 29 mg/dL (9-20); Calcium 10.9 mg/dL (8.4-10.2); Carbon Dioxide 18 mmol/L (22-30); Chloride 103 mmol/L (98-107); Estimated Glomerular Filt Rate 44; Glucose 129 mg/dL (65-110); Magnesium 2.2 mg/dL (1.6-2.3); NT Pro B Type Natriuretic Pept 403 pg/mL (19.9-100); Potassium 4.5 mmol/L (3.4-5.0); Sodium 138 mmol/L (137-145); Troponin I < 0.012 ng/mL (0.000-0.034)
[2023-03-21 09:18] LABS: Partial Thromboplastin Time 30.5 SECONDS (22.3-36.8)
[2023-03-21 09:35] VITALS: BP 112/65; PULSE 74; RESP 24; O2SAT 97
[2023-03-21 10:06] LABS: Anion Gap 10 mmol/L (8-16); Blood Urea Nitrogen 24 mg/dL (9-20); Calcium 9.3 mg/dL (8.4-10.2); Carbon Dioxide 20 mmol/L (22-30); Chloride 109 mmol/L (98-107); Estimated Glomerular Filt Rate 56; Glucose 108 mg/dL (65-110); Potassium 5.1 mmol/L (3.4-5.0); Sodium 139 mmol/L (137-145)
--- NOTE | 2023-03-21 10:13 | ECG_ITS ---
Measurements Intervals [place] Rate: 73 P: RI: 0 QRS: -22 QRSD: 101 T: 56 QT: 357 QTc: 395 Interpretive Statements ATRIAL FIBRILLATION DELAYED PRECORDIAL R/S TRANSITION VOLTAGE CRITERIA FOR LVH MINIMAL Q WAVES- HIGH LATERAL LEADS ABNORMAL ECG COMPARED TO ECG 03/21/2023 05:43:12 HEART RATE HAS DECREASED Electronically Signed On 03-21-2023 11:05:45 CDT by Jasiel Hernández D.O.
[2023-03-21 10:51] VITALS: BP 114/65; PULSE 73; RESP 16; O2SAT 96
[2023-03-21 12:03] LABS: Basophils Absolute Auto 0.1 K/mm3 (0.0-0.1); Basophils Percent Auto 0.7 % (0.2-1.2); Eosinophils Absolute Auto 0.2 K/mm3 (0-0.3); Eosinophils Percent Auto 1.9 % (0-4.4); Hematocrit 46.2 % (42.0-52.0); Hemoglobin 15.9 g/dL (14.0-18.0); Immature Granulocyte Absolute 0.01 K/mm3 (0.00-0.031); Immature Granulocyte Percent A 0.1 % (0-0.5); Lymphocytes Absolute Auto 2.57 K/mm3 (0.9-3.2); Lymphocytes Percent Auto 29.9 % (18.3-44.2); Mean Corpuscular HGB Conc 34.4 g/dl (32-36); Mean Corpuscular Hemoglobin 31.7 pg (26-34); Mean Platelet Volume 9.2 fl (7.4-10.4); Monocytes Absolute Auto 0.5 K/mm3 (0.1-0.6); Monocytes Percent Auto 5.7 % (2.6-8.5); Neutrophils Absolute Auto 5.3 K/mm3 (1.3-6.7); Neutrophils Percent Auto 61.7 % (45.5-73.1); Platelet Count Result 306 k/mm3 (150-375); Red Blood Count 5.02 M/mm3 (4.6-6.20); Red Cell Distribution Width 12.2 % (11.5-14.5); White Blood Count 8.6 K/mm3 (4.5-10.0)
== END 2023-03-21 10:56 | disposition home or self-care (01) ==
PROVIDERS: Emergency Provider Preventive Medicine Aerospace Medicine; PCP Physician Assistant
DX: I48.91 Unspecified atrial fibrillation (principal); E86.0 Dehydration; Z79.01 Long term (current) use of anticoagulants; I45.10 Unspecified right bundle-branch block; I45.2 Bifascicular block; I51.7 Cardiomegaly
CPT/HCPCS: 36415; 71045; 80048; 80053; 83735; 83880; 84484; 85025; 85610; 85730; 93005; 96361; 96374; 96375; 99284; J7030

== ENCOUNTER 2023-04-14 13:39 | Outpatient (CLI) | payer OTHER, SELFPAY ==
--- NOTE | 2023-04-14 | ECHO_ITS ---
Patient Info Name: Tremayne Contreras Age: 63 years : 1960 Gender: Male Ht: 68 in Wt: 174 lbs BSA: 1.96 m2 HR: 68 bpm BP: 175 / 73 mmHg Heart Rhythm: Sinus Rhythm Technical Quality: Fair Exam Date: 04/14/2023 2:01 PM Exam Location: [facility] Patient Status: Outpatient Admit Date: 04/14/2023 Staff Ordering Physician: Ubaldo Velázquez MD Communications Professor: Angela Mixon RDCS Attending Provider: Ubaldo Velázquez MD Referring Physician: Melnaia CROWLEY; Exam Type: CA echo doppler color flow Study Info Indications - bicuspid aorta Complete two-dimensional, color flow and Doppler transthoracic echocardiogram is performed. Summary 1. Complete two-dimensional, color flow and Doppler transthoracic echocardiogram is performed. 2. Left ventricular chamber dimension is moderately enlarged. 3. Left ventricular systolic function is normal, estimated at 60-65%. 4. There is mildly increased left ventricular wall thickness. 5. The left ventricular diastolic function is grade III diastolic dysfunction. 6. There is moderate eccentrically directed aortic valve regurgitation which may be underestimated due to eccentricity. 7. There is no aortic valve stenosis. 8. There is mild tricuspid valve regurgitation. 9. Mild pulmonary hypertension, estimated pulmonary arterial systolic pressure is 35 mmHg. 10. The aortic root size at the sinus of Valsalva is mildly dilated. Consider CT chest if clinically indicated. Left Ventricle Left ventricular chamber dimension is moderately enlarged. Left ventricular systolic function is normal, estimated at 60-65%. There is mildly increased left ventricular wall thickness. The left ventricular diastolic function is grade III diastolic dysfunction. Right Ventricle Right ventricular chamber dimension is normal. Right ventricular systolic function is normal. Left Atria Left atrial chamber dimension is moderately enlarged. Right Atria Right atrial chamber dimension is mildly enlarged. Aortic Valve The aortic valve is trileaflet. There is no aortic valve stenosis. There is moderate eccentrically directed aortic valve regurgitation which may be underestimated due to eccentricity. Pulmonic Valve The pulmonic valve is not well visualized. There is mild pulmonic regurgitation. Mitral Valve The mitral valve has thickened leaflets. There is trace mitral valve regurgitation. The mitral valve annulus is mildly calcified. Tricuspid Valve The tricuspid valve leaflets are normal. There is mild tricuspid valve regurgitation. Mild pulmonary hypertension, estimated pulmonary arterial systolic pressure is 35 mmHg. Pericardium/Pleural The pericardium appears normal. There is no pericardial effusion. Inferior Vena Cava Normal inferior vena cava with >50% collapse upon inspiration consistent with normal right atrial pressure, 5 mmHg. Aorta The aortic root size at the sinus of Valsalva is mildly dilated. Consider CT chest if clinically indicated. There is mild aortic atherosclerosis. Left Ventricular Outflow Tract Name Value Normal LVOT 2D LVOT Diameter 2.3 cm LVOT Doppler LVOT Peak Gradient 8 mmHg LVOT Mean Gradient
== END 2023-04-14 13:40 | disposition home or self-care (01) ==
PROVIDERS: PCP Physician Assistant; Visit Provider Specialist
DX: I08.2 Rheumatic disorders of both aortic and tricuspid valves (principal); I27.20 Pulmonary hypertension, unspecified
CPT/HCPCS: 93306

== ENCOUNTER 2023-07-16 06:36 | Outpatient (CLI) | payer OTHER, SELFPAY ==
[2023-07-16 07:24] LABS: Basophils Percent Auto 0.8 % (0.2-1.2); Eosinophils Absolute Auto 0.2 K/mm3 (0-0.3); Eosinophils Percent Auto 4.4 % (0-4.4); Hematocrit 42.4 % (42.0-52.0); Hemoglobin 13.9 g/dL (14.0-18.0); Immature Granulocyte Absolute 0.01 K/mm3 (0.00-0.031); Immature Granulocyte Percent A 0.2 % (0-0.5); Lymphocytes Absolute Auto 1.81 K/mm3 (0.9-3.2); Mean Corpuscular HGB Conc 32.8 g/dl (32-36); Mean Corpuscular Hemoglobin 30.9 pg (26-34); Mean Corpuscular Volume 94.2 fl (80-100); Mean Platelet Volume 9.1 fl (7.4-10.4); Monocytes Absolute Auto 0.5 K/mm3 (0.1-0.6); Monocytes Percent Auto 10.1 % (2.6-8.5); Neutrophils Absolute Auto 2.2 K/mm3 (1.3-6.7); Neutrophils Percent Auto 46.5 % (45.5-73.1); Platelet Count Result 223 k/mm3 (150-375); Red Cell Distribution Width 12.6 % (11.5-14.5); White Blood Count 4.8 K/mm3 (4.5-10.0)
[2023-07-16 07:30] LABS: Alanine Aminotransferase 20 U/L (6-50); Albumin Level 4.6 g/dL (3.5-5.1); Alkaline Phosphatase 92 U/L (38-126); Anion Gap 13 mmol/L (8-16); Aspartate Amino Transferase 23 U/L (17-59); Bilirubin,Total 0.6 mg/dL (0.2-1.3); Blood Urea Nitrogen 26 mg/dL (9-20); Calcium 9.3 mg/dL (8.4-10.2); Carbon Dioxide 22 mmol/L (22-30); Chloride 104 mmol/L (98-107); Cholesterol 223 mg/dL (0-200); Estimated Glomerular Filt Rate 41; Glucose 111 mg/dL (65-110); HDL Direct 47 mg/dL; Potassium 4.2 mmol/L (3.4-5.0); Sodium 139 mmol/L (137-145); Triglycerides 131 mg/dL (<150)
[2023-07-16 07:42] LABS: LDL Cholesterol Direct 123 mg/dL
[2023-07-16 08:01] LABS: Prostate Specific Antigen 2.1 ng/mL (< OR = 4.0)
[2023-07-16 08:08] LABS: Vitamin D 25 Hydroxy 20.3 ng/mL
== END 2023-07-16 06:37 | disposition home or self-care (01) ==
PROVIDERS: PCP Physician Assistant; Visit Provider Physician Assistant
DX: Z12.5 Encounter for screening for malignant neoplasm of prostate (principal); I10 Essential (primary) hypertension; R53.83 Other fatigue
CPT/HCPCS: 36415; 80053; 80061; 82306; 82607; 82746; 84153; 84443; 85025; G0103

== ENCOUNTER 2023-12-31 09:45 | Outpatient (CLI) | payer OTHER, SELFPAY ==
[2023-12-31 10:28] LABS: Alanine Aminotransferase 18 U/L (6-50); Albumin Level 4.6 g/dL (3.5-5.1); Alkaline Phosphatase 81 U/L (38-126); Anion Gap 7 mmol/L (4-12); Aspartate Amino Transferase 21 U/L (17-59); Bilirubin,Total 0.5 mg/dL (0.2-1.3); Blood Urea Nitrogen 29 mg/dL (9-20); Calcium 9.9 mg/dL (8.4-10.2); Carbon Dioxide 24 mmol/L (22-30); Chloride 105 mmol/L (98-107); Estimated Glomerular Filt Rate 32; Glucose 101 mg/dL (65-110); Magnesium 2.3 mg/dL (1.6-2.3); Potassium 5.2 mmol/L (3.4-5.0); Sodium 136 mmol/L (137-145)
== END 2023-12-31 09:46 | disposition home or self-care (01) ==
LOC: ANHLAB 09:46
PROVIDERS: PCP Physician Assistant; Visit Provider Physician Assistant
DX: R25.2 Cramp and spasm (principal); I10 Essential (primary) hypertension; N18.30 Chronic kidney disease, stage 3 unspecified
CPT/HCPCS: 36415; 80053; 83735

== ENCOUNTER 2024-02-10 15:33 | Outpatient (CLI) | payer OTHER, SELFPAY ==
--- NOTE | ~2024-02-10 | US_ITS ---
US renal BI 02/10/2024 16:07 Procedure: Realtime transabdominal ultrasound of the kidneys and bladder. Indication: Chronic kidney disease. Abnormal blood work. Comparison: No prior studies for comparison. Findings: Renal echotexture is normal bilaterally without hydronephrosis, contour deforming mass or r enal calculus. The right kidney measures 10.6 cm and left kidney measures 11 cm. Bladder within norm al limits. Impression: 1: Unremarkable renal ultrasound. No stones, masses or hydronephrosis. Reviewed, dictated and finalized at location B. Impression: 1: Unremarkable renal ultrasound. No stones, masses or hydronephrosis.
== END 2024-02-10 15:34 | disposition home or self-care (01) ==
LOC: ANHIMG 15:33
PROVIDERS: PCP Physician Assistant; Visit Provider Internal Medicine Nephrology
DX: N18.32 Chronic kidney disease, stage 3b (principal)
CPT/HCPCS: 76775

== ENCOUNTER 2024-03-06 10:49 | Outpatient (CLI) | payer OTHER, SELFPAY ==
[2024-03-06 11:16] LABS: Creatinine Urine 234.6 mg/dL
[2024-03-06 11:18] LABS: Total Protein Urine Random < 5 mg/dL; Ur Ttl Prot Creatinine Ratio < 0.02 mg/mg (0-0.20)
[2024-03-06 11:23] LABS: Albumin Level 4.7 g/dL (3.5-5.1); Anion Gap 7 mmol/L (4-12); Blood Urea Nitrogen 16 mg/dL (9-20); Calcium 9.3 mg/dL (8.4-10.2); Carbon Dioxide 26 mmol/L (22-30); Chloride 106 mmol/L (98-107); Estimated Glomerular Filt Rate 51; Glucose 98 mg/dL (65-110); Magnesium 2.1 mg/dL (1.6-2.3); Phosphorus 2.8 mg/dL (2.5-4.5); Potassium 4.3 mmol/L (3.4-5.0); Sodium 139 mmol/L (137-145)
[2024-03-06 11:31] LABS: Complement C3 113 mg/dL (88-165)
[2024-03-08 12:00] LABS: Creatinine, Random Urine 220 mg/dL (20-320); Total Protein/Creatinine Ratio 73 mg/g creat (25-148)
[2024-03-09 00:58] LABS: Protein, Total 7.1 g/dL (6.1-8.1)
[2024-03-09 10:38] LABS: Albumin 4.4 g/dL (3.8-4.8); Alpha 1 Globulin 0.3 g/dL (0.2-0.3); Alpha 2 Globulin 0.7 g/dL (0.5-0.9); Beta 1 Globulin 0.5 g/dL (0.4-0.6); Gamma Globulin 0.8 g/dL (0.8-1.7)
[2024-03-09 12:09] LABS: ANCA Screen NEGATIVE (NEGATIVE)
[2024-03-09 16:18] LABS: Anti Glomerular Basement Memb <1.0 AI
== END 2024-03-06 10:50 | disposition home or self-care (01) ==
LOC: ANHLAB 10:50
PROVIDERS: PCP Physician Assistant; Visit Provider Internal Medicine Nephrology
DX: N18.32 Chronic kidney disease, stage 3b (principal); R25.2 Cramp and spasm
CPT/HCPCS: 36415; 80069; 82570; 83520; 83735; 84155; 84156; 84165; 84166; 86036; 86038; 86039; 86160; 86225

== ENCOUNTER 2025-05-30 13:34 | Outpatient (CLI) | payer OTHER, SELFPAY ==
--- NOTE | 2025-05-30 | ECHO_ITS ---
Patient Info Name: Tremayne Contreras Age: 65 years : 1960 Gender: Male Ht: 68 in Wt: 170 lbs BSA: 1.94 m2 HR: 95 bpm BP: 184 / 87 mmHg Technical Quality: Fair Exam Date: 05/30/2025 1:58 PM Patient Status: O Admit Date: 05/30/2025 Exam Type: CA echo doppler color flow Complete two-dimensional, color flow and Doppler transthoracic echocardiogram is performed. Staff Attending Provider: Ubaldo Velázquez MD Summary 1. Complete two-dimensional, color flow and Doppler transthoracic echocardiogram is performed. 2. Left ventricular systolic function is normal, estimated at 55-60. 3. The left ventricular diastolic function is normal. 4. There is mild to moderate aortic valve regurgitation. 5. There is mild aortic valve sclerosis. 6. There is mild tricuspid valve regurgitation. 7. No pulmonary hypertension, estimated pulmonary arterial systolic pressure is 33 mmHg. 8. There is mild pulmonic regurgitation. Left Ventricle Left ventricular chamber dimension is normal. Left ventricular systolic function is normal, estimated at 55-60. There is no increased left ventricular wall thickness. Left ventricular septal wall motion is normal. The left ventricular diastolic function is normal. Right Ventricle Right ventricular chamber dimension is normal. Right ventricular systolic function is normal. Left Atria Left atrial chamber dimension is normal. Right Atria Right atrial chamber dimension is normal. Aortic Valve The aortic valve is trileaflet. There is mild aortic valve sclerosis. There is no aortic valve stenosis. There is mild to moderate aortic valve regurgitation. Pulmonic Valve The pulmonic valve is normal. There is no pulmonic valve stenosis. There is mild pulmonic regurgitation. Mitral Valve The mitral valve has normal leaflets. There is no mitral valve stenosis. There is no mitral valve regurgitation. Tricuspid Valve The tricuspid valve leaflets are normal. There is no significant tricuspid valve stenosis. There is mild tricuspid valve regurgitation. No pulmonary hypertension, estimated pulmonary arterial systolic pressure is 33 mmHg. Pericardium/Pleural The pericardium appears normal. There is no pericardial effusion. Inferior Vena Cava Normal inferior vena cava with >50% collapse upon inspiration consistent with normal right atrial pressure, 5 mmHg. Aorta The aortic root size at the sinus of Valsalva is mildly dilated. The prox ascending aorta size is normal. Left Ventricular Outflow Tract Name Value Normal LVOT 2D LVOT Diameter 2.4 cm LVOT Doppler LVOT Peak Velocity 150 cm/s LVOT Peak Gradient 9 mmHg LVOT Mean Gradient 5 mmHg LVOT VTI 33 cm LVOT VTI/AV VTI Ratio 0.8 LVOT Stroke Volume 156 ml LVOT CO 10.7 l/min LVOT CI 5.5 l/min/m2 Pulmonic Valve Name Value Normal RVOT Doppler RVOT Peak Velocity 71 cm/s RVOT Peak Gradient 2 mmHg PV Doppler PV Peak Velocity 115 cm/s PV Peak Gradient 5 mmHg Mitral Valve Name Value Normal MV Diastolic Function MV E Peak Velocity 62 cm/s MV A Peak Velocity 55 cm/s MV E/A 1.1 MV Decel Time (PW) 218 ms Tricuspid Valve Name Value Normal TV Regurgitation Doppler TR Peak Velocity 264 cm/s TR Peak Gradient 28 mmHg Estimated PAP/RSVP RA Pressure 5 mmHg <=5 PA Systolic Pressure 33 mmHg <36 RV Systolic Pressure 33 mmHg <36 TV Annular TDI TV Lateral Radha s' Velocity 15.7 cm/s >=9.5 Aorta Name Value Normal Ascending Aorta Ao Root Diameter (MM) 3.7 cm Ao Root Diam Index (MM) 1.9 cm/m2 Aortic Valve Name Value Normal AV Doppler AV Peak Velocity 214 cm/s AV Peak Gradient 18 mmHg AV Mean Gradient 8 mmHg AV VTI 44 cm AV Area (Cont Eq VTI) 3.5 cm2 >=3.0 AV Area (Cont Eq Alfredo) 3.3 cm2 AV DI (Alfredo) 0.70 AV Regurgitation 2D LVOT Area 4.7 cm2 Ventricles Name Value Normal LV Dimensions 2D/MM IVS Diastolic Thickness (2D) 0.7 cm 0.6-1.0 IVS Diastole Thickness (MM) 1.0 cm 0.6-1.0 LVID Diastole (2D) 5.9 cm 4.2-5.8 LVID Diastole (MM) 6.1 cm 4.2-5.8 LVIW Diastolic Thickness (2D) 1.2 cm 0.6-1.0 LVIW Diastolic Thickness (MM) 0.8 cm 0.6-1.0 LVID Systole (2D) 4.1 cm 2.5-4.0 LVID Systole (MM) 3.8 cm 2.5-4.0 LVOT Diameter 2.4 cm LV Mass (2D Cubed) 231.67 g 88.00-224.00 LV Mass Index (2D Cubed) 120 g/m2 49-115 Relative Wall Thickness (2D) 0.41 <=0.42 LV Mass (MM Cubed) 218.93 g 88.00-224.00 LV Mass Index (MM Cubed) 113 g/m2 49-115 Relative Wall Thickness (MM) 0.27 LV Fractional Shortening/Ejection Fraction 2D/MM LV Fractional Shortening (2D) 30 % 25-43 LV Fractional Shortening (MM) 38 % 25-43 LV EF (MM Teichholz) 67 % LV EF (2D Teichholz) 57 % LV Diastolic Volume (4C MOD) 133 ml LV EF (4C MOD) 57 % LV Diastolic Volume (2C MOD) 127 ml LV EF (2C MOD) 62 % LV Diastolic Volume (BP MOD) 130 ml 62-150 LV Diastolic Volume Index (BP MOD) 67 ml/m2 34-74 LV Systolic Volume (BP MOD) 53 ml 21-61 LV Systolic Volume Index (BP MOD) 27 ml/m2 11-31 LV EF (BP MOD) 60 % 52-72 LV Diastolic Length (4C) 9.6 cm LV Systolic Length (4C) 8.4 cm LV Stroke Volume (4C MOD) 77 ml Atria Name Value Normal LA Dimensions LA Dimension (MM) 3.3 cm 3.0-4.0 LA Volume (4C A-L) 48 ml LA Volume (BP A-L) 62 ml RA Dimensions RA Systolic Major Charlotte Length (4C) 5.6 cm 2.1-2.7 RA Area (4C) 18.4 cm2 <=18.0 Report Signatures
--- OUTSIDE RECORDS SUMMARY | 2025-05-30 13:59 | XMS_ITS | Clinical Summary ---
Author Organization [facility] [address] Address [address] [place] [address] Care Team Providers Care Furnace Combustion Tester Name Role Phone Rito Jones Primary Care Provider Allergies No known active allergies Medications pantoprazole DR (PROTONIX) 40 mg EC tablet Take 1 tablet (40 mg total) by mouth every morning 04/19/20 24 Active NIFEdipine (NIFEdipine XL) 90 mg 24 hr tabletIndication s:Essential hypertension Take 1 tablet (90 mg total) by mouth daily 90 tablet 3 05/04/20 25 Active metoprolol XL (TOPROL-XL) 50 mg extended release tablet Take 1 tablet (50 mg total) by mouth daily 90 tablet 3 05/04/20 25 Active lisinopriL (PRINIVIL,ZESTRI L) 40 mg tablet Take 1 tablet (40 mg total) by mouth daily 90 tablet 3 05/04/20 25 Active apixaban (Eliquis) 5 mg tablet Take 1 tablet (5 mg total) by mouth every 12 (twelve) hours 60 tablet 11 05/04/20 25 Active NIFEdipine (NIFEdipine XL) 90 mg 24 hr tabletIndication s:Essential hypertension TAKE 1 TABLET(90 MG) BY MOUTH DAILY 90 tablet 1 06/24/20 24 025 Discontinued metoprolol XL (TOPROL-XL) 50 mg extended release tablet TAKE 1 TABLET(50 MG) BY MOUTH DAILY 30 tablet 3 10/07/19 25 025 Discontinued(Re order) lisinopriL (PRINIVIL,ZESTRI L) 40 mg tablet TAKE 1 TABLET(40 MG) BY MOUTH DAILY 90 tablet 11/23/19 25 025 Discontinued(Re order) apixaban (Eliquis) 5 mg tablet TAKE 1 TABLET BY MOUTH EVERY 12 HOURS 60 tablet 5 11/30/19 25 025 Discontinued(Re order) NIFEdipine XL 90 mg 24 hr tabletIndication s:Essential hypertension TAKE 1 TABLET(90 MG) BY MOUTH DAILY 90 tablet 1 05/03/20 25 025 Discontinued(Re order) Active Problems Problem Noted Date Diagnosed Date Paroxysmal atrial fibrillation 08/30/2022 Nonrheumatic aortic valve insufficiency 09/12/19 21 Encounters Date Type Department Care Team Description 05/04/2025 Telephone [facility] Cardiology [address] [place] [address] Ubaldo Velázquez MD from Last 3 Months Medical History Medical History Date Comments Hypertension Hypertension Hx Other Medical Aortic Aneurysm , Ascending Hx Other Medical 2011 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 Enlarged prostate Heart valve problem Heart murmur Hyperlipidemia BPH (benign prostatic hyperplasia) Anxiety Family History Medical History Relation Name Comments Heart disease Father Valvular heart disease Mother Valvu lar Heart Disease; Cause of : Valvular Heart Disease Relation Name Status Comments Father (Age 56) Mother (Age 56) Social History Tobacco Use Types Packs/Day Years Used Date Smoking Tobacco: Never Smokeless Tobacco: Never Tobacco Cessation:Counseling Given: Not Answered Alcohol Use Standard Drinks/Week Comments Yes 0 (1 standard drink = 0.6 oz pur e alcohol) Sex and Gender Information Value Date Recorded Sex Assigned at Not on file Legal 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 Gender Identity Not on file Sexual Orientation Not on file Obstetrics History Last Filed Vital Signs Vital Sign Reading Time Taken Comments Blood Pressure 142/60 05/14/2024 8:33 AM CDT Pulse 130 05/14/2024 8:33 AM CDT Temperature - - Respiratory Rate 18 10/24/2020 8:52 AM 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 Oxygen Saturation 97% 05/14/2024 8:33 AM CDT Inhaled Oxygen Concentration - - Weight 76.2 kg (168 lb) 05/14/2024 8:33 AM CDT Height 172.7 cm (5' 8) 05/14/2024 8:33 AM CDT Body Mass Index 25.54 05/14/2024 8:33 AM CDT Plan of Treatment Health Maintenance Due Date Last Done Comments Colon Cancer Screening-Colonoscopy 1960 Depression Screening 1960 Fall Risk Assessment 1960 Hepatitis C Screening 1960 Prostate Cancer Screening-PSA 1960 DTaP/Tdap/Td Vaccine (1 - Tdap) 01/01/1971 Hepatitis B Screening 01/01/1978 Pneumococcal vaccine 65+ (1 of 1 - PCV) 01/01/2010 Zoster Vaccine (1 of 2) 01/01/2010 Abdominal Aortic Aneurysm (AAA) Screen 01/01/2025 Well Visit 65+ 01/01/2025 Influenza Vaccine (#1) 2025 Insurance [facility] [employer] Address: [address] [facility] [employer] Address: [address] Care Teams Furnace Combustion Tester Relationship Specialty Start Date End Date Rito Jones PA [address] [facility] [address] [place] [address] PCP - General Physician Sleeper Cutter 07/24/20
== END 2025-05-30 13:35 | disposition home or self-care (01) ==
LOC: ANHCARD 13:34
PROVIDERS: PCP Internal Medicine; Visit Provider Specialist
DX: I08.3 Combined rheumatic disorders of mitral, aortic and tricuspid valves (principal)
CPT/HCPCS: 93306

== ENCOUNTER 2025-06-14 07:06 | Emergency (ER) | payer OTHER, SELFPAY ==
--- NOTE | ~2025-06-14 | XR_ITS ---
Examination: XR chest 2V Clinical History: palpitations, afib Comparison: 03/21/2023 Technique: PA and Lateral Findings: Cardiomediastinal silhouette normal size and configuration. Lungs clear. No acute bony abnormality. IMPRESSION: 1. No acute cardiopulmonary findings. Reviewed, dictated and finalized at location R.
--- NOTE | 2025-06-14 07:08 | ECG_ITS ---
Test Date: 2025-06-14 07:14:12 Measurements Intervals [place] Rate: 141 P: 0 DE: 0 QRS: -45 QRSD: 102 T: 107 QT: 287 QTc: 440 Interpretive Statements ATRIAL FIBRILLATION WITH RAPID VENTRICULAR RESPONSE INCOMPLETE RIGHT BUNDLE BRANCH BLOCK LEFT ANTERIOR FASCICULAR BLOCK LEFT VENTRICULAR HYPERTROPHY WITH ST-T CHANGE CANNOT R/O SEPTAL INFARCT, AGE INDETERMINATE ABNORMAL ECG No previous ECG available for comparison Electronically Signed On 06-14-2025 07:47:31 CDT by Jasiel Hernández D.O.
[2025-06-14 07:12] VITALS: BP 147/86; PULSE 142; RESP 20; TEMP 36.4; O2SAT 98
[2025-06-14 07:31] LABS: Hematocrit 48.8 % (42.0-52.0); Hemoglobin 16.9 g/dL (14.0-18.0); Immature Granulocyte Percent A 0.1 % (0-0.5); Lymphocytes Absolute Auto 2.01 K/mm3 (0.9-3.2); Mean Corpuscular HGB Conc 34.6 g/dl (32-36); Mean Corpuscular Hemoglobin 31.3 pg (26-34); Mean Corpuscular Volume 90.4 fl (80-100); Nucleated Red Blood Cells Absolute Auto 0.000 K/mm3 (0.0-0.012); Nucleated Red Blood Cells Perc 0.0 % (0.0-0.2); Platelet Count Result 305 k/mm3 (150-375); Red Blood Count 5.40 M/mm3 (4.6-6.20); White Blood Count 7.4 K/mm3 (4.5-10.0)
[2025-06-14 07:42] LABS: INR 1.2; Prothrombin Time 14.9 Seconds (11.1-14.7)
[2025-06-14 07:46] LABS: Alanine Aminotransferase 22 U/L (6-50); Albumin Level 4.9 g/dL (3.5-5.1); Alkaline Phosphatase 118 U/L (38-126); Anion Gap 10 mmol/L (4-12); Aspartate Amino Transferase 29 U/L (17-59); Bilirubin,Total 1.0 mg/dL (0.2-1.3); Blood Urea Nitrogen 16 mg/dL (9-20); Calcium 9.9 mg/dL (8.4-10.2); Carbon Dioxide 22 mmol/L (22-30); Chloride 106 mmol/L (98-107); Estimated CRCL calculation 49 ml/min; Estimated Glomerular Filt Rate 56; Glucose 129 mg/dL (65-110); Lipase 137 U/L (23-300); Potassium 4.1 mmol/L (3.4-5.0); Sodium 138 mmol/L (137-145); Total Protein 9.0 g/dL (6.3-8.2)
[2025-06-14 07:53] LABS: Troponin I < 0.012 ng/mL (0.000-0.034)
[2025-06-14 08:07] LABS: Partial Thromboplastin Time 31.1 Seconds (22.3-36.8)
[2025-06-14 08:11] VITALS: BP 137/85; PULSE 103; RESP 20; O2SAT 95
--- NOTE | 2025-06-14 08:56 | ECG_ITS ---
Test Date: 2025-06-14 08:58:20 Measurements Intervals [place] Rate: 125 P: 0 KS: 0 QRS: -45 QRSD: 101 T: 100 QT: 299 QTc: 431 Interpretive Statements ATRIAL FIBRILLATION WITH RAPID VENTRICULAR RESPONSE INCOMPLETE RIGHT BUNDLE BRANCH BLOCK LEFT ANTERIOR FASCICULAR BLOCK LEFT VENTRICULAR HYPERTROPHY WITH ST-T CHANGE CANNOT R/O SEPTAL INFARCT, AGE INDETERMINATE ABNORMAL ECG Compared to ECG 06/14/2025 07:14:12 HEART RATE HAS DECREASED Electronically Signed On 06-14-2025 09:21:21 CDT by Jasiel Hernández D.O.
[2025-06-14 09:00] VITALS: PULSE 135
[2025-06-14] MEDS: METOPROLOL TARTRATE INJ 5 MG/5 ML VIAL IV PUSH (09:00)
--- NOTE | 2025-06-14 09:00 | PC.NURSE ---
HR increased to 165 when standing to urinate. Pt states he had right sided chest pain. Dr Borjas notified. EKG done. Orders received
--- NOTE | 2025-06-14 09:01 | PC.NURSE ---
HR 135 b/p 136/86 1 mg of metoprolol given IVP
--- NOTE | 2025-06-14 09:02 | PC.NURSE ---
HR 116 B/P 132/70 1 mg Metoprolol
--- NOTE | 2025-06-14 09:04 | PC.NURSE ---
HR 118 B/P 132/84 1 mg metoprolol given
--- NOTE | 2025-06-14 09:05 | PC.NURSE ---
HR 103 BP 135/76 1 mg metoprolol given
--- NOTE | 2025-06-14 09:07 | PC.NURSE ---
HR 106 B/P 132/65 1 mg Metoprolol given
[2025-06-14 09:24] LABS: Add Urine Microscopic? YES; Appearance Urine Clear (Clear); Glucose Urine UA Negative (Negative); Leukocyte Esterase Ur Trace LEU/UL (Negative); Nitrate Urine Negative (Negative); Non Pathogenic Casts 0-2; Specific Grav Ur 1.010 (1.001-1.035)
--- NOTE | 2025-06-14 10:17 | ECG_ITS ---
Test Date: 2025-06-14 10:23:13 Measurements Intervals [place] Rate: 98 P: 0 GA: 0 QRS: -38 QRSD: 104 T: 77 QT: 345 QTc: 441 Interpretive Statements ATRIAL FIBRILLATION LEFT AXIS DEVIATION INCOMPLETE RIGHT BUNDLE BRANCH BLOCK LEFT VENTRICULAR HYPERTROPHY WITH ST-T CHANGE MINIMAL Q WAVES- HIGH LATERAL LEADS CANNOT R/O SEPTAL INFARCT, AGE INDETERMINATE ABNORMAL ECG Compared to ECG 06/14/2025 08:58:20 HEART RATE HAS DECREASED Electronically Signed On 06-14-2025 11:37:12 CDT by Jasiel Hernández D.O.
--- NOTE | 2025-06-14 10:31 | ED.ARRPALP ---
HPI - Arrhythmia/Palpitations General Chief Complaint: Arrhythmia/Palpitations Stated Complaint: heart racing, shaky Time Seen by Provider: 06/14/25 08:55 Source: patient Mode of arrival: ambulatory Limitations: no limitations History of Present Illness HPI narrative: Patient presents with report of feeling like his heart was racing and feeling shaky. He checked his pulse/heart rate at home when he woke up feeling like this and notes that it was 135 beats per minute. That was at approximately 6:00 a.m.. He denies any fevers, chills, or cough. He has a history of atrial fibrillation for which he is metoprolol 50 mg daily as well as Eliquis. In addition he is on nifedipine and lisinopril. He took although his blood pressure medications at 6:00 a.m. today. He has a history of aortic valve issues, he states this is prolapse/regurgitation and is currently being followed his die operator. He has an appointment already scheduled with Dr. Velázquez on . While patient was standing at bedside to urinate I was informed that his heart rate had gone into the 136 again although there had been a period where was rate controlled while he was lying down. Was also informed that patient was experiencing chest pain so I did request that repeat EKG be obtained. However, upon reassessing patient he states that it was not chest pain but rather right-sided abdominal pain that was occurring only has he attempted to urinate. Patient reports that he has been tired. He has required cardioversion once before. His last bowel movement was this morning and reportedly large in volume but otherwise denies any constipation, diarrhea. Denies shortness of breath. He reports feeling anxious. Has white in the corners of his mouth but denies using any Maalox, etc. States he Would like to drink water. Related Data Home Medications ?Medication ?Instructions ?Recorded ?Confirmed ?Last Taken ?Type lisinopril 40 mg tablet 40 mg PO DAILY 05/23/22 08/16/24 Unknown History Allergies Allergy/AdvReac Type Severity Reaction Status Date / Time No Known Allergies Allergy Unknown Verified 02/21/25 08:13 [facility] Past Medical History Medical History Aortic insufficiency Atrial fibrillation with RVR Atrial fibrillation Hypertension Surgical History Surgical History No history of previous surgery Family History Family History Father Heart disease History of rheumatic fever and rheumatic valve disease, declined surgery and of valvular heart disease age 56 Mother No problems noted. 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 He has 1 daughter who is the durable power claims attorney he occasionally drinks alcohol. He does have significant other. The patient is a lifelong nonsmoker. He does not use any marijuana or are any other illegal substances. 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 HEAD: Normocephalic, atraumatic. EYES: Non injected, non icteric ENT: Nares clear, no rhinorrhea or epistaxis. Gross auditory acuity intact. Tacky mucous membranes. Bilateral corners of mouth are sticky with white film NECK: Supple. No meningismus. CHEST: Speaking in full sentences. No respiratory distress. HEART: Irregularly IRRegular rate and rhythm. . ABDOMEN: Soft, nondistended. EXTREMITIES: Normal range of motion. SKIN: Warm, dry, no rash. NEURO: No focal deficits. Alert and oriented. Answering questions. Following commands. Normal speech without aphasia or dysarthria. PSYCH: Congruent mood and affect. Patient states he feels anxious and is an anxious person a does appear slightly anxious at times although otherwise calm and with good eye contact, egaged in care Course Vital Signs Vital signs: Vital Signs Temperature 97.6 F 06/14/25 07:12 Pulse Rate 142 H 06/14/25 07:12 Respiratory Rate 20 06/14/25 07:12 Blood Pressure 147/86 H 06/14/25 07:12 Pulse Oximetry 98 06/14/25 07:12 Oxygen Delivery Room Air 06/14/25 07:12 Temperature 97.6 F 06/14/25 07:12 Pulse Rate 118 H 06/14/25 12:08 Respiratory Rate 20 06/14/25 12:08 Blood Pressure 128/70 06/14/25 12:08 Pulse Oximetry 99 06/14/25 12:08 Oxygen Delivery Room Air 06/14/25 07:12 MDM - Arrhythmia/Palpitations MDM Narrative Medical decision making narrative: Patient presented with feeling shaky and with his heart racing. He has also been tired. Physical exam revealed an irregular and rapid heartbeat at a rate of 142 beats per minute, though with BP acceptable, mild hypertension at 147/86.. Based on this, the most likely diagnosis is atrial fibrillation with rapid ventricular response (AFib with RVR). This is supported by: age, underlying cardiopulmonary disease/valvular disease/history of Afib diagnosis. An IV was placed and the patient was put on cardiac and pulse oximetry monitors. ECG showed an irregularly irregular narrow-complex tachycardia without associated P-waves, consistent with the diagnosis of Afib with RVR. Patient hemodynamically stable thus early priority in management was to slow the ventricular rate using metoprolol given this is a medication he is already on. IVP 5mg over 2 minutes initially ordered. With this, in general he remains rate controlled for several hours, typically rate between 90 and 110 while looking at the monitor outside of room frequently. Inside the room, his rate will occasionally go into the 120s. Initial troponin normal however patient reportedly developed CP after so 3 hour troponin remains ordered. However, patient clarifies it was right lateral abdominal pain, brief, occurred while standing to urinate. Has not recurred. CBC unremarkable. Normal renal function. No marked electrolyte abnormalities, including magnesium. INR 1.2. Urinalysis with trace leukocyte esterase but otherwise without markers of infection. Repeat troponin within normal limits. I did discuss with TURN OPERATOR for cardiology [facility] Jes Cecelia via phone at 11:30am. Recommended given he has otherwise had an acceptable blood pressure, that he could start taking 75 mg of metoprolol starting tomorrow (no need for more today). Will keep currently scheduled follow-up appointment with Dr. Velázquez currently scheduled for . Will discharge with Rx for 25mg to supplement the 50mg he already has. Patient reports feeling pretty anxious in general, describes himself as an anxious person. Had previously been prescribed low dose ativan 0.5mg by his PCP, filled in August 2025. Given a one time dose here today. He is already on anticoagulation. Stable for discharge. Differential Diagnosis Differential diagnosis: Likely palpitations, anxiety, sinus tachycardia, artial fibrillation, artial flutter, ventricular premature beats, supraventricular tachycardia, ventricular tachycardia and WPW Medical Records Attestation: I reviewed the patient's medical records. Medical records narrative: Echo 05/30/25 reviewed: Summary 1. Complete two-dimensional, color flow and Doppler transthoracic echocardiogram is performed. 2. Left ventricular systolic function is normal, estimated at 55-60. 3. The left ventricular diastolic function is normal. 4. There is mild to moderate aortic valve regurgitation. 5. There is mild aortic valve sclerosis. 6. There is mild tricuspid valve regurgitation. 7. No pulmonary hypertension, estimated pulmonary arterial systolic pressure is 33 mmHg. 8. There is mild pulmonic regurgitation. Lab Data Attestation: I reviewed the patient's lab results. 06/14/25 07:24 06/14/25 07:24 Labs: Lab Results 06/14/25 06/14/25 06/14/25 Range/Units 07:24 09:01 10:20 WBC 7.4 (4.5-10.0) K/mm3 RBC 5.40 (4.6-6.20) M/mm3 Hgb 16.9 D (14.0-18.0) g/dL Hct 48.8 (42.0-52.0) % MCV 90.4 (80-100) fl MCH 31.3 (26-34) pg MCHC 34.6 (32-36) g/dl RDW 13.1 (11.5-14.5) % Plt Count 305 (150-375) k/mm3 MPV 8.8 (7.4-10.4) fl Immature Gran % (Auto) 0.1 (0-0.5) % Neut % (Auto) 65.2 (45.5-73.1) % Lymph % (Auto) 27.1 (18.3-44.2) % [place] % (Auto) 5.3 (2.6-8.5) % Eos % (Auto) 1.8 (0-4.4) % Baso % (Auto) 0.5 (0.2-1.2) % Lymph # (Auto) 2.01 (0.9-3.2) K/mm3 [place] # (Auto) 0.4 (0.1-0.6) K/mm3 Eos # (Auto) 0.1 (0-0.3) K/mm3 Baso # (Auto) 0.0 (0.0-0.1) K/mm3 Abs Immat Gran (auto) 0.01 (0.00-0.031) K/mm3 Absolute Neuts (auto) 4.8 (1.3-6.7) K/mm3 Absolute Nucleated RBC 0.000 (0.0-0.012) K/mm3 Nucleated RBC % 0.0 (0.0-0.2) % PT 14.9 H (11.1-14.7) Seconds INR 1.2 APTT 31.1 (22.3-36.8) Seconds Sodium 138 (137-145) mmol/L Potassium 4.1 (3.4-5.0) mmol/L Chloride 106 (98-107) mmol/L Carbon Dioxide 22 (22-30) mmol/L Anion Gap 10 (4-12) mmol/L BUN 16 (9-20) mg/dL Creatinine 1.29 (0.7-1.3) mg/dL Estim Creat Clear Calc 49 ml/min Estimated GFR 56 L (59 - ) Glucose 129 H (65-110) mg/dL Calcium 9.9 (8.4-10.2) mg/dL Magnesium 2.3 (1.6-2.3) mg/dL Total Bilirubin 1.0 (0.2-1.3) mg/dL AST 29 (17-59) U/L ALT 22 (6-50) U/L Alkaline Phosphatase 118 (38-126) U/L Troponin I < 0.012 < 0.012 (0.000-0.034) ng/mL Total Protein 9.0 H (6.3-8.2) g/dL Albumin 4.9 (3.5-5.1) g/dL Lipase 137 (23-300) U/L Urine Color Yellow (Yellow) Urine Appearance Clear (Clear) Urine pH 7.0 (5.0-9.0) Ur Specific [place] 1.010 (1.001-1.035) Urine Protein Negative (Negative) mg/dL Urine Glucose (UA) Negative (Negative) mg/dL Urine Ketones Negative (Negative) mg/dL Ur Blood (Man) Negative (Negative) Urine Nitrate Negative (Negative) Urine Bilirubin Negative (Negative) Urine Urobilinogen 1.0 (<2.0) mg/dL Leukocyte Esterase Rfl Trace H (Negative) NIKOLAY/UL Urine RBC 0-2 (0-2) /hpf Urine WBC 0-5 (0-3) /hpf Ur Squamous Epith Cells None seen (Few) /hpf Urine Bacteria None seen /hpf Urine Casts 0-2 Imaging Data Radiologist's impression: Impressions Chest X-Ray 06/14/25 07:57 IMPRESSION: 1. No acute cardiopulmonary findings. ECG Data EKG #1: Attestation: I personally reviewed and interpreted this ECG as follows: ECG completion date: 06/14/25 ECG completion time: 07:14 Interpretation: Irregularly irregular rhythm at a rate of 141 beats per minute. QRS 102. QT/QTC 287/440. Good R-wave progression across the precordial leads. Incomplete RBBB given QRS less [id number]; RSR' M-shaped pattern in V1-V3; wide, slurred S wave in lateral leads (I, aVL, and to a lesser degree V5-6). Left axis deviation with Leads II, III and aVF negative and leads I and aVL positive. . Previous EKG March 2023 - unable to load image but documentation: Interpretive Statements ATRIAL FIBRILLATION DELAYED PRECORDIAL R/S TRANSITION VOLTAGE CRITERIA FOR LVH MINIMAL Q WAVES- HIGH LATERAL LEADS ABNORMAL ECG COMPARED TO ECG 03/21/2023 05:43:12 HEART RATE HAS DECREASED EKG #2: Attestation: I personally reviewed and interpreted this ECG as follows: ECG completion date: 06/14/25 ECG completion time: 08:58 Interpretation: Atrial fibrillation at a rate of 120 high beats per minute, rapid ventricular response. QRS 101. QT/QTC 299/431. Good R-wave progression across the precordial leads. Incomplete right bundle-branch block. EKG #3: Attestation: I personally reviewed and interpreted this ECG as follows: ECG completion date: 06/14/25 ECG completion time: 10:23 Interpretation: Atrial fibrillation at a rate of 90 beats per minute. QRS 104. QT/QTC 345/441. Good R-wave progression across the precordial leads. No T-wave inversions. Marked left axis deviation. Incomplete RBBB given QRS less [id number]; RSR' M-shaped pattern in V1-V3; wide, slurred S wave in lateral leads (I, aVL. Discharge Plan Discharge Clinical Impression: Atrial fibrillation with RVR Patient Disposition: Home Condition: Stable Instructions: Antibiotic Form, A-fib (Atrial Fibrillation) (ED) Additional Instructions: Continue taking your medications as prescribed. Cardiology recommended starting tomorrow morning to add additional 25mg metoprolol for total of 75mg daily. I am prescribing a short course of this but keep your upcoming appointment with your cardiology to discuss further and prescribe in the future. Return to the emergency department any new or worsening symptoms. Patient Language: Mexican Prescriptions: New metoprolol tartrate 25 mg tablet 25 mg PO DAILY Qty: 14 0RF No Action magnesium oxide 400 mg (241.3 mg magnesium) tablet 400 mg PO DAILY Qty: 90 1RF pantoprazole 40 mg tablet,delayed release (DR/EC) See Rx Instructions .ROUTE .COMPLEX Qty: 90 3RF Dose Instruction: TAKE 1 TABLET BY MOUTH EVERY MORNING Rx Instructions: TAKE 1 TABLET BY MOUTH EVERY MORNING lorazepam 0.5 mg tablet 0.5 mg PO DAILY PRN (Reason: anxiety) Qty: 30 0RF triamcinolone acetonide 0.1 % cream 1 applic topical BID Qty: 30 0RF lisinopril 40 mg tablet 40 mg PO DAILY Eliquis 5 mg Tablet 5 mg PO Q12HR Qty: 60 0RF metoprolol succinate 50 mg tablet extended release 24 hr 50 mg PO DAILY Qty: 30 0RF Follow-up/Referrals: Ubaldo Velázquez MD [Physician, Cardiology] Aamir Carey DO [Primary Care Provider, Internal Medicine] Stand Alone Forms: Work/School Release IP Time of Disposition: 11:44
--- OUTSIDE RECORDS SUMMARY | 2025-06-14 10:50 | XMS_ITS | Clinical Summary ---
Author [place] [facility] [place] [address] [facility] [address] [place] [address] Care Team Providers Care Cyber Forensic Specialist Name Role Phone Rito Jones Primary Care Provider Allergies No known active allergies Medications pantoprazole DR (PROTONIX) 40 mg EC tablet Take 1 tablet (40 mg total) by mouth every morning 4 Active NIFEdipine (NIFEdipine XL) 90 mg 24 hr tabletIndications :Essential hypertension Take 1 tablet (90 mg total) by mouth daily 90 tablet 3 5 Active metoprolol XL (TOPROL-XL) 50 mg extended release tablet Take 1 tablet (50 mg total) by mouth daily 90 tablet 3 5 Active lisinopriL (PRINIVIL,ZESTRIL ) 40 mg tablet Take 1 tablet (40 mg total) by mouth daily 90 tablet 3 5 Active apixaban (Eliquis) 5 mg tablet Take 1 tablet (5 mg total) by mouth every 12 (twelve) hours 60 tablet 11 5 Active Active Problems Problem Noted Date Diagnosed Date Paroxysmal atrial fibrillation 08/30/2022 Nonrheumatic aortic valve insufficiency 09/12/19 21 Encounters Date Type Department Care Team Description 05/30/2025 Orders Only [facility] [place] [address] [place] [id number] Ubaldo Velázquez MD 05/04/2025 Telephone [facility] [address] [place] [address] Ubaldo Velázquez MD from Last 3 Months [...] on file Legal Sex Male 1:50 AM HOISTMAN Gender Identity Not on file Sexual Orientation Not on file Obstetrics History Last Filed Vital Signs Vital Sign Reading Time Taken Comments Blood Pressure 142/60 05/14/2024 8:33 AM CDT Pulse 130 05/14/2024 8:33 AM CDT Temperature - - Respiratory Rate 18 10/24/2020 8:52 AM HOISTMAN Oxygen Saturation 97% 05/14/2024 8:33 AM CDT [...] Visit 65+ 01/01/2025 Influenza Vaccine (#1) 2025 Procedures Procedure Name Priority Date/Time Associated Diagnosis Comments CARDIOLOGY DOCUMENT SCAN 05/30/2025 from Last 3 Months Results * Cardiology Document Scan (05/30/2025) Anatomical Region Laterality Modality Other us Ubaldo Velázquez MD CV CARDIAC SERVICES PROC [facility] Final Result from Last 3 Months Insurance Care Teams Cyber Forensic Specialist Relationship Specialty Start Date End Date Rito Jones PA [address] [facility] [[email or web address] [address] [place] [address] PCP - General Physician Trimming Caser 07/24/20
[2025-06-14 11:02] LABS: Troponin I < 0.012 ng/mL (0.000-0.034)
[2025-06-14] MEDS: SODIUM CHLORIDE 0.9% IV 1,000 ML 999 ML IV CONT (11:20)
[2025-06-14] MEDS: LORazepam (*CRX) 0.5 MG TABLET PO (11:20)
[2025-06-14 11:23] VITALS: BP 132/73; PULSE 118; RESP 20; O2SAT 99
[2025-06-14 11:25] VITALS: PULSE 110
[2025-06-14 11:33] LABS: Magnesium 2.3 mg/dL (1.6-2.3)
[2025-06-14 12:08] VITALS: BP 128/70; PULSE 118; RESP 20; O2SAT 99
== END 2025-06-14 12:09 | disposition home or self-care (01) ==
PROVIDERS: Emergency Provider Student in an Organized Health Care Education/Training Program; PCP Internal Medicine
DX: I48.91 Unspecified atrial fibrillation (principal); I10 Essential (primary) hypertension; I35.1 Nonrheumatic aortic (valve) insufficiency; Z79.01 Long term (current) use of anticoagulants; Z79.899 Other long term (current) drug therapy; I51.7 Cardiomegaly; I45.2 Bifascicular block
CPT/HCPCS: 36415; 71046; 80053; 81001; 83690; 83735; 84484; 85025; 85610; 85730; 93005; 96361; 96374; 99284; A9270; J0616; J7030